=== PATIENT | male | born 1960 | race Caucasian/White ===

== ENCOUNTER 2017-01-24 10:29 | Emergency (ER) | payer OTHER ==
[~2017-01-24] VITALS: Ht 182.9 cm; Wt 70.0 kg
[~2017-01-24 10:29] MED LIST: ALPR0.5T3 PO; ZOFR4TAB3 SL
[2017-01-24 10:32] VITALS: BP 129/79; PULSE 91; RESP 15; TEMP 98.2; O2SAT 98
--- NOTE | 2017-01-24 11:59 | PD ---
HPI Chief Complaint: Fall Time Seen by Provider: 11:59 Travel History International Travel<30 days: No Contact w/Intl Traveler<30days: No Traveled to known affect area: No History of Present Illness HPI 56-year-old male presents emergency Department with complaint of right shoulder pain after tripping and falling over a step 6 days ago. He denies hitting his head or loss of consciousness. Denies neck pain or back pain. He has continued to work with increasing right shoulder pain. Reports decreased range of motion secondary to pain. Denies paresthesias, loss of sensation, decreased strength to the affected extremity. Denies fever, vomiting. Denies chest pain , shortness of breath, abdominal pain, nausea, vomiting. Denies anticoagulants. Has taken ibuprofen with some relief of pain. Pain is aggravated with movement and palpation. No known allergies. Has no other medical complaints. No other modifying factors or associated signs and symptoms. PFSH Past Medical History Anxiety: Yes Diminished Hearing: No Immunizations Current: Yes Migraines: Yes Influenza Vaccination: No Past Surgical History Other Surgery: Yes (R KNEE aspiration when he was 11) Social History Alcohol Use: Yes (daily) Tobacco Use: Yes (1/2 PPD) Substance Use: Yes (alcohol) Allergies-Medications (Allergen,Severity, Reaction): Coded Allergies: No Known Allergies (Verified , 01/24/17) Reported Meds & Prescriptions Reported Meds & Active Scripts Active Lortab (Hydrocodone-Acetaminophen) 5-325 Mg Tab 1 Tab PO Q4H PRN Ibuprofen 800 Mg Tab 800 Mg PO Q6HR PRN Reported Alprazolam 0.5 Mg Tab 0.5 Mg PO TID PRN Review of Systems Except as stated in HPI: all other systems reviewed are Neg Physical Exam Narrative GENERAL: Well-nourished, well-developed male patient, in no acute distress SKIN: Warm and dry. HEAD: Atraumatic. Normocephalic. EYES: Pupils equal and round. No scleral icterus. No injection or drainage. ENT: Mucosa pink and moist. Airway patent. NECK: Supple. Trachea midline. CARDIOVASCULAR: Regular rate and rhythm. No murmur appreciated. RESPIRATORY: No accessory muscle use. Clear to auscultation. Breath sounds equal bilaterally. GASTROINTESTINAL: Rounded. MUSCULOSKELETAL: Right shoulder with tenderness to palpation to the anterior aspect; without erythema, edema, ecchymosis; no obvious deformity; shoulders are equal; joint stable; with abduction greater than 45. Right upper extremity supple and non-tense with 2+ radial pulse and sensory intact and without erythema or edema. No obvious deformities. No clubbing. No cyanosis. No edema. NEUROLOGICAL: Awake and alert. Oriented 3. No obvious cranial nerve deficits. Motor grossly within normal limits. Normal speech. PSYCHIATRIC: Appropriate mood and affect; insight and judgment normal. Data Data Last Documented VS Vital Signs Date Time Temp Pulse Resp B/P Pulse Ox O2 Delivery O2 Flow Rate FiO2 01/24/17 10:32 98.2 91 15 129/79 98 Orders Shoulder, Complete (>2vws) (01/24/17 11:59) Ibuprofen (Motrin) (01/24/17 12:00) Sling Cradle Arm (01/24/17 ) MDM Medical Decision Making Medical Screen Exam Complete: Yes Emergency Medical Condition: Yes Medical Record Reviewed: Yes Differential Diagnosis Shoulder contusion, shoulder sprain, shoulder fracture Narrative Course 56-year-old male with right shoulder injury after mechanical fall 6 days ago. Ice pack and ibuprofen ordered. Right shoulder x-ray ordered. 1247: Shoulder x-ray concludes Nondisplaced fracture of the distal right clavicle. Arm sling provided for support. Lortab and ibuprofen prescribed for home. Instructed Patient to follow up with orthopedics. Patient verbalizes understanding and agreement with treatment plan. Patient is medically cleared and stable for discharge. Discussed reasons to return to the emergency department. Instructed patient to follow up with primary care provider. Patient agrees with treatment plan. The patients vital signs are stable and the patient is stable for outpatient follow-up and treatment. Patient discharged home, stable and in no acute distress. Diagnosis Primary Impression: Right clavicle fracture Qualified Code: S42.001A - Closed nondisplaced fracture of right clavicle, unspecified part of clavicle, initial encounter Referrals: Orthopedist Primary Care Physician Patient Instructions: Clavicle Fracture (ED), General Instructions Departure Forms: Tests/Procedures, Work Release Special Instructions: Unable to return to work until cleared by primary care and/or orthopedic Additional Instructions: Tylenol or ibuprofen as needed and as directed to reduce pain and inflammation Rest, ice, and compress extremety to decrease pain and inflammation Arm sling for support Avoid aggravating activity; increase activity as tolerated Follow-up with primary care provider Follow-up with orthopedics Return to the emergency department immediately with worsening symptoms Med/Other Pt SpecificInfo: Prescription(s) given Scripts Hydrocodone-Acetaminophen (Lortab)5-325 Mg Tab1 Tab PO Q4H PRN (PAIN) #20 TAB Ref 0 Prov:Hilary Vinson MD 01/24/17 Ibuprofen 800 Mg Yam343 Mg PO Q6HR PRN (PAIN LESS THAN 5 ON SCALE) #30 TAB Ref 0 Prov:Lia Berrios 01/24/17 Disposition: 01 DISCHARGE HOME Condition: Stable Lia Berrios Jan 24, 2017 11:59
[2017-01-24] MEDS ORDERED: IBUPROFEN 800 MG TAB PO ONE (12:00)
--- NOTE | 2017-01-24 12:40 | RADRPT ---
EXAM DATE/TIME: 01/24/2017 12:29 [facility] COMPARISON: CHEST SINGLE AP, August 17, 2016, 8:40. INDICATIONS : Right shoulder pain, fall down stairs. MEDICAL HISTORY : None. SURGICAL HISTORY : None. ENCOUNTER: Initial ACUITY: 4 - 6 days PAIN SCORE: 10/10 LOCATION: Right shoulder FINDINGS: The humeral head is well situated within the glenoid fossa. The bony mineralization is normal. The exam does demonstrate a minimally displaced fracture of the distal clavicle. This is immediately adjacent to the acromioclavicular joint. The right lung apex is clear. CONCLUSION: Nondisplaced fracture of the distal right clavicle. All Kinney MD on January 24, 2017 at 12:38 Board Certified Radiologist. This report was verified electronically.
[2017-01-24] MEDS ORDERED: IBUP800T23 PO (12:48)
[2017-01-24] MEDS ORDERED: HYDR-3533 PO (12:50)
== END 2017-01-24 13:08 | disposition home or self-care (01) ==
LOC: NEPK 10:29
DX: S42.034A Nondisplaced fracture of lateral end of right clavicle, initial encounter for closed fracture (principal); W01.0XXA Fall on same level from slipping, tripping and stumbling without subsequent striking against object, initial encounter
CPT/HCPCS: 73030; 99283

== ENCOUNTER 2017-09-04 07:45 | Emergency (ER) | payer OTHER ==
[~2017-09-04] VITALS: Ht 182.9 cm; Wt 68.0 kg
[~2017-09-04 07:45] MED LIST changes: +HYDR-3533 PO; +IBUP1TAB7 PO; -ZOFR4TAB3 SL
[2017-09-04 07:50] VITALS: BP 140/89; PULSE 107; RESP 22; TEMP 97.7; O2SAT 97
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
[2017-09-04] MEDS ORDERED: IBUPROFEN 600 MG TAB PO ONE (11:30)
== END 2017-09-04 11:48 | disposition home or self-care (01) ==
LOC: NEPD 07:45
DX: M25.511 Pain in right shoulder (principal); S80.212A Abrasion, left knee, initial encounter; F41.9 Anxiety disorder, unspecified; F17.200 Nicotine dependence, unspecified, uncomplicated; V28.4XXA Motorcycle driver injured in noncollision transport accident in traffic accident, initial encounter
CPT/HCPCS: 73030; 99283

== ENCOUNTER 2018-02-09 18:49 | Inpatient (IN) | payer OTHER ==
[2018-02-09] VITALS (9 sets, daily range): BP systolic 98–173; BP diastolic 54–84; PULSE 98–180; RESP 16–50; TEMP 98.8–99; O2SAT 96–100
[~2018-02-09] VITALS: Ht 182.9 cm; Wt 62.2 kg
[~2018-02-09 18:49] MED LIST changes: -HYDR-3533 PO; -IBUP1TAB7 PO
[2018-02-09] MEDS ORDERED: SODIUM CHLOR 0.9% 1000 ML INJ 1,000 ML IV SCH (19:02)
--- NOTE | 2018-02-09 19:13 | PD ---
HPI Chief Complaint: Altered Mental Status Time Seen by Provider: 19:01 Travel History International Travel<30 days: No Contact w/Intl Traveler<30days: No History of Present Illness HPI 57-year-old male presents emergency department via EMS with reports of confusion , and wandering for the last 4 days. Patient is jittery, and confused. Patient denies any significant pain, fever, chills, abdominal pain, nausea, vomiting, or urinary changes. He states he last drank 2 days ago. He is aware of where he is and who he lives with. He does answer questions appropriately, but does seem somewhat confused. He denies seizures from alcohol withdrawal in the past. 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 He has no known drug allergies. [facility] Past Medical History Anxiety: Yes Diminished Hearing: No Immunizations Current: Yes Migraines: Yes Past Surgical History Other Surgery: Yes (R KNEE aspiration when he was 11) Social History Alcohol Use: Yes (1 drink per day) Tobacco Use: Yes (1/2 PPD) Substance Use: No Allergies-Medications (Allergen,Severity, Reaction): Coded Allergies: No Known Allergies (Verified Allergy, Unknown, 02/09/18) Reported Meds & Prescriptions Reported Meds & Active Scripts Active Reported Alprazolam 0.5 Mg Tab 0.5 Mg PO TID PRN Review of Systems ROS Limitations: Poor Historian Except as stated in HPI: all other systems reviewed are Neg General / Constitutional: Positive: Chills, No: Fever Eyes: No: Visual changes HENT: No: Headaches Cardiovascular: No: Chest Pain or Discomfort Respiratory: No: Shortness of Breath Gastrointestinal: No: Abdominal Pain Genitourinary: No: Dysuria Musculoskeletal: No: Pain Skin: No Rash Neurologic: No: Weakness Psychiatric: No: Depression Endocrine: No: Polydipsia Hematologic/Lymphatic: No: Easy Bruising Physical Exam Exam Limitations: Poor Historian Narrative GENERAL: Patient is thin and gaunt and jittery. SKIN: Warm and dry. Normal color. Decreased turgor with tenting present. No signs of IV drug use or cellulitis HEAD: Atraumatic. Normocephalic. EYES: Pupils equal and round. No scleral icterus. No injection or drainage. ENT: No nasal bleeding or discharge. Mucous membranes pink and dry. Teeth in poor repair. Pharynx clear. Airways patent NECK: Trachea midline. No JVD. Supple and nontender CARDIOVASCULAR: Regular rate and rhythm. RESPIRATORY: No accessory muscle use. Clear to auscultation. Breath sounds equal bilaterally. GASTROINTESTINAL: Abdomen soft, non-tender, nondistended. Hepatic and splenic margins not palpable. MUSCULOSKELETAL: Extremities without clubbing, cyanosis, or edema. No obvious deformities. NEUROLOGICAL: Awake and alert. No obvious cranial nerve deficits. Motor grossly within normal limits. Five out of 5 muscle strength in the arms and legs. Normal speech. Data Data Last Documented VS Vital Signs Date Time Temp Pulse Resp B/P (MAP) Pulse Ox O2 Delivery O2 Flow Rate FiO2 02/09/18 19:06 99.0 99 18 137/82 (100) 98 Orders Orders Electrocardiogram (02/09/18:) Ammonia (02/09/18:02) Complete Blood Count With Diff (02/09/18:02) Comprehensive Metabolic Panel (02/09/18:) Prothrombin Time / Inr (Pt) (02/09/18:) Act Partial Throm Time (Ptt) (02/09/18:) Troponin I (02/09/18:02) Thyroid Stimulating Hormone (02/09/18 19:02) Urinalysis - C+S If Indicated (02/09/18 19:) Lactic Acid Sepsis Protocol (02/09/18 19:02) Chest, Single Ap (02/09/18:02) Ecg Monitoring (02/09/18 19:02) Iv Access Insert/Monitor (02/09/18:) Oximetry (02/09/18:) Sodium Chloride 0.9% Flush (Ns Flush) (02/09/18 19:15) Sodium Chlor 0.9% 1000 Ml Inj (Ns 1000 M (02/09/18 19:02) Thiamine Inj (Thiamine Inj) (02/09/18 19:15) Drug Screen, Random Urine (02/09/18 19:02) Alcohol (Ethanol) (02/09/18 19:02) Chlordiazepoxide (Librium) (02/09/18 19:15) Lorazepam Inj (Ativan Inj) (02/09/18 19:15) Admit Order (Ed Use Only) (02/09/18 21:04) Labs Laboratory Tests Test 02/09/18 19:25 02/09/18 20:40 White Blood Count 4.5 TH/MM3 Red Blood Count 3.53 MIL/MM3 Hemoglobin 12.7 GM/DL Hematocrit 37.6 % Mean Corpuscular Volume 106.3 FL Mean Corpuscular Hemoglobin 36.0 PG Mean Corpuscular Hemoglobin Concent 33.9 % Red Cell Distribution Width 13.8 % Platelet Count 153 TH/MM3 Mean Platelet Volume 7.8 FL Neutrophils (%) (Auto) 78.6 % Lymphocytes (%) (Auto) 8.3 % Monocytes (%) (Auto) 13.0 % Eosinophils (%) (Auto) 0.0 % Basophils (%) (Auto) 0.1 % Neutrophils # (Auto) 3.6 TH/MM3 Lymphocytes # (Auto) 0.4 TH/MM3 Monocytes # (Auto) 0.6 TH/MM3 Eosinophils # (Auto) 0.0 TH/MM3 Basophils # (Auto) 0.0 TH/MM3 CBC Comment DIFF FINAL Differential Comment Prothrombin Time 10.7 SEC Prothromb Time International Ratio 1.1 RATIO Activated Partial Thromboplast Time 23.1 SEC Blood Urea Nitrogen 23 MG/DL Creatinine 1.35 MG/DL Random Glucose 92 MG/DL Total Protein 7.5 GM/DL Albumin 4.3 GM/DL Calcium Level 9.1 MG/DL Alkaline Phosphatase 83 U/L Aspartate Amino Transf (AST/SGOT) 41 U/L Alanine Aminotransferase (ALT/SGPT) 36 U/L Total Bilirubin 1.4 MG/DL Sodium Level 133 MEQ/L Potassium Level 3.9 MEQ/L Chloride Level 97 MEQ/L Carbon Dioxide Level 24.2 MEQ/L Anion Gap 12 MEQ/L Estimat Glomerular Filtration Rate 54 ML/MIN Lactic Acid Level 2.0 mmol/L Ammonia 18 MCMOL/L Troponin I LESS THAN 0.02 NG/ML Thyroid Stimulating Hormone 3rd Gen 1.220 uIU/ML Ethyl Alcohol Level LESS THAN 3 MG/DL Urine Color Cammy Urine Turbidity HAZY Urine pH 5.0 Urine Specific [place] 1.027 Urine Protein 100 mg/dL Urine Glucose (UA) 50 mg/dL Urine Ketones 20 mg/dL Urine Occult Blood NEG Urine Nitrite NEG Urine Bilirubin NEG Urine Urobilinogen 4.0 OR GREATER mg/dL Urine Leukocyte Esterase NEG Urine RBC LESS THAN 1 /hpf Urine WBC 4 /hpf Urine Squamous Epithelial Cells <1 /hpf Urine Hyaline Casts 22 /lpf Urine Mucus FEW /lpf Microscopic Urinalysis Comment CATH-CULT NOT IND Urine Opiates Screen NEG Urine Barbiturates Screen NEG Urine Amphetamines Screen NEG Urine Benzodiazepines Screen POS Urine Cocaine Screen NEG Urine Cannabinoids Screen NEG MDM Medical Decision Making Medical Screen Exam Complete: Yes Emergency Medical Condition: Yes Medical Record Reviewed: Yes Differential Diagnosis Altered mental status. Alcohol withdrawal syndrome. Electrolyte imbalance. Dehydration. Narrative Course Patient appears medically stable at time of exam. Labs ordered including CBC CMP, coagulation studies, lactic acid, TSH, troponin , serum alcohol level, ammonia level, and urinalysis. Chest x-ray is ordered as well as EKG. IV access is obtained the patient is given 100 mg thiamine, 1000 mL saline bolus IV, 1 mg lorazepam IV, and 25 mg Librium p.o. Chest x-ray shows COPD without acute process per radiologist. There is a chronic right distal clavicular fracture. EKG shows sinus tachycardia without significant ST changes CBC shows no significant leukocytosis, however there is a macrocytic anemia with a hemoglobin of 12.7, hematocrit of 37.6. CMP significant for sodium 133, potassium 3.9, chloride is 97, carbon dioxide is normal at 24.2. BUN is 23, creatinine is slightly elevated 1.35. Calcium is normal. Total bilirubin is 1.4, AST is 41, ammonia level is 18. Troponin is less than 0.02. TSH is normal. Lactic acid is 2.0 Urinalysis shows no sign of infection. He does have 100 protein, and increased urobilinogen. Specific gravity is 1.025. Patient is felt to be suffering from alcohol withdrawal syndrome. Patient will be admitted to observation for this diagnosis. 2200 hrs., patient had been admitted to Dr. Salmeron, however the patient's symptoms worsened with both visual and auditory hallucinations, increased tachycardia, and need for soft restraints. Patient received a total of 25 mg Librium p.o. as well as 5 mg lorazepam IV without improvement of his symptoms. Dr. Salmeron did not feel the patient was appropriate for the floor, and requested that he be admitted to ICU under the fishing accessories maker. Calls placed to Dr. Bonds to discuss the patient. Patient is given 10 mg Geodon IM as well as 50 mg Benadryl IV. 2220 hrs[address] Dr. Bonds is here to see the patient and assumes care. Diagnosis Primary Impression: Alcohol withdrawal syndrome, with delirium Admitting Information Admitting Physician Requests: Observation Condition: Stable Venkat More Feb 09, 2018 19:13
[2018-02-09] MEDS ORDERED: SODIUM CHLORIDE 0.9% FLUSH 10 ML FLUSH IV FLUSH PRN ×2 (19:15→22:45)
[2018-02-09] MEDS ORDERED: LORazepam 2 MG/ML VIAL IV PUSH ONE ×3 (19:15→21:45)
[2018-02-09] MEDS ORDERED: THIAMINE INJ 100 MG in SODIUM CHLORIDE 0.9% INJ 100 ML IV ONE (19:15)
[2018-02-09] MEDS ORDERED: chlordiazePOXIDE 25 MG CAP PO ONE (19:15)
--- NOTE | 2018-02-09 19:30 | RADRPT ---
EXAM DATE: 02/09/2018 7:24 PM EDT AGE/SEX: 57 years / Male INDICATIONS: Cough CLINICAL DATA: This is the patient's initial encounter. Patient reports that signs and symptoms have been present for 1 day and indicates a pain score of 0/10. MEDICAL/SURGICAL HISTORY: Chronic obstructive pulmonary disease. None. COMPARISON: Chest x-ray 08/17/2016. FINDINGS: 2 frontal views of the chest demonstrate the lungs to be symmetrically aerated without evidence of ma ss, infiltrate or effusion. The lungs are hyperinflated bilaterally. The cardiomediastinal contours are unremarkable. There is an old right distal clavicular fracture with lack of union. This is new fr om the prior study. CONCLUSION: The lungs are hyperinflated consistent with COPD. No acute infiltrate or effusion. Chronic right dist al clavicular fracture. Electronically signed by: Yovany Upton MD 02/09/2018 7:28 PM EDT
[2018-02-09 19:45] LABS: AUTOMATED NEUTROPHIL # 3.6 TH/MM3 (1.8-7.7); BASOPHIL % 0.1 % (0.0-2.0); HEMATOCRIT 37.6 % (39.0-51.0); HEMOGLOBIN 12.7 GM/DL (13.0-17.0); LYMPH % 8.3 % (9.0-44.0); LYMPHOCYTE # 0.4 TH/MM3 (1.0-4.8); MEAN CELL VOLUME 106.3 FL (80.0-100.0); MEAN CORPUSCULAR HGB CONC 33.9 % (32.0-36.0); MEAN PLATELET VOLUME 7.8 FL (7.0-11.0); MONOCYTE # 0.6 TH/MM3 (0-0.9); NEUT % 78.6 % (16.0-70.0); PLATELET COUNT 153 TH/MM3 (150-450); RED BLOOD COUNT 3.53 MIL/MM3 (4.50-5.90); RED CELL DISTRIBUTION WIDTH 13.8 % (11.6-17.2); WHITE BLOOD COUNT 4.5 TH/MM3 (4.0-11.0)
[2018-02-09 20:02] LABS: ALBUMIN 4.3 GM/DL (3.4-5.0); AST (GOT) 41 U/L (15-37); BICARBONATE 24.2 MEQ/L (21.0-32.0); BLOOD UREA NITROGEN 23 MG/DL (7-18); CALCIUM 9.1 MG/DL (8.5-10.1); CHLORIDE 97 MEQ/L (98-107); CREATININE 1.35 MG/DL (0.60-1.30); GLOMERULAR FILTRATION RATE 54 ML/MIN (>89); GLUCOSE,RANDOM 92 MG/DL (74-106); SODIUM (NA) 133 MEQ/L (136-145)
[2018-02-09 20:03] LABS: ALT (GPT) 36 U/L (12-78)
[2018-02-09 20:06] LABS: INTERNATIONAL NORMALIZED RATIO 1.1 RATIO; PROTHROMBIN TIME - PATIENT 10.7 SEC (9.8-11.6)
[2018-02-09 20:13] LABS: ALKALINE PHOSPHATASE 83 U/L (45-117); TOTAL BILIRUBIN ADULT 1.4 MG/DL (0.2-1.0); TOTAL PROTEIN 7.5 GM/DL (6.4-8.2); TROPONIN I LESS THAN 0.02 NG/ML (0.02-0.05)
[2018-02-09 21:12] LABS: BLOOD, URINE NEG (NEG); GLUCOSE,URINE 50 mg/dL (NEG); HYALINE CAST, URINE 22 /lpf (RARE); KETONE, URINE 20 mg/dL (NEG); MUCUS URINE FEW /lpf (OCC); NITRITE,URINE NEG (NEG); SQUAMOUS EPITHELIAL CELL URINE <1 /hpf (0-5); URINE COLOR Amber (YELLW/STRAW); URINE LEUKOCYTE ESTERASE NEG (NEG)
[2018-02-09 21:15] LABS: BILIRUBIN, URINE NEG (NEG)
[2018-02-09] MEDS ORDERED: MIDAZOLAM HCL 2 MG/2 ML VIAL IV PUSH ONE (22:00)
[2018-02-09] MEDS ORDERED: diphenhydrAMINE HCL 50 MG/ML VIAL IV PUSH ONE (22:00)
[2018-02-09] MEDS ORDERED: ZIPRASIDONE MESYLATE 20 MG VIAL IM ONE (22:00)
--- NOTE | 2018-02-09 22:06 | PD ---
Physical Exam Exam Limitations: Clinical Condition, Altered Mental Status Narrative GENERAL: Agitated SKIN: Warm and dry. HEAD: Atraumatic. Normocephalic. EYES: Pupils equal and round. No scleral icterus. No injection or drainage. ENT: No nasal bleeding or discharge. Mucous membranes pink and moist. NECK: Trachea midline. No JVD. CARDIOVASCULAR: Tachycardic rate but regular rhythm RESPIRATORY: No accessory muscle use. Clear to auscultation. Breath sounds equal bilaterally. GASTROINTESTINAL: Abdomen soft, non-tender, nondistended. Hepatic and splenic margins not palpable. MUSCULOSKELETAL: Extremities without clubbing, cyanosis, or edema. No obvious deformities. NEUROLOGICAL: Patient is more agitated, having more visual and auditory hallucinations present. Motor grossly within normal limits. Five out of 5 muscle strength in the arms and legs. Due to the excessive movement the patient is in soft restraints while receiving CIWA PROTOCOL PSYCHIATRIC: UNABLE TO ASSESS DUE TO AMS Data Data Last Documented VS Vital Signs Date Time Temp Pulse Resp B/P (MAP) Pulse Ox O2 Delivery O2 Flow Rate FiO2 02/09/18 19:06 99.0 99 18 137/82 (100) 98 Orders Orders Electrocardiogram (02/09/18 19:02) Ammonia (02/09/18 19:02) Complete Blood Count With Diff (02/09/18:02) Comprehensive Metabolic Panel (02/09/18 19:02) Prothrombin Time / Inr (Pt) (02/09/18 19:02) Act Partial Throm Time (Ptt) (02/09/18 19:02) Troponin I (02/09/18:02) Thyroid Stimulating Hormone (02/09/18 19:02) Urinalysis - C+S If Indicated (02/09/18 19:02) Lactic Acid Sepsis Protocol (02/09/18 19:02) Chest, Single Ap (02/09/18 19:02) Ecg Monitoring (02/09/18 19:02) Iv Access Insert/Monitor (02/09/18 19:) Oximetry (02/09/18 19:02) Sodium Chloride 0.9% Flush (Ns Flush) (02/09/18 19:15) Sodium Chlor 0.9% 1000 Ml Inj (Ns 1000 M (02/09/18 19:02) Thiamine Inj (Thiamine Inj) (02/09/18 19:15) Drug Screen, Random Urine (02/09/18 19:02) Alcohol (Ethanol) (02/09/18 19:02) Chlordiazepoxide (Librium) (02/09/18 19:15) Lorazepam Inj (Ativan Inj) (02/09/18 19:15) Admit Order (Ed Use Only) (02/09/18 21:04) Labs Laboratory Tests Test 02/09/18 19:25 02/09/18 20:40 White Blood Count 4.5 TH/MM3 Red Blood Count 3.53 MIL/MM3 Hemoglobin 12.7 GM/DL Hematocrit 37.6 % Mean Corpuscular Volume 106.3 FL Mean Corpuscular Hemoglobin 36.0 PG Mean Corpuscular Hemoglobin Concent 33.9 % Red Cell Distribution Width 13.8 % Platelet Count 153 TH/MM3 Mean Platelet Volume 7.8 FL Neutrophils (%) (Auto) 78.6 % Lymphocytes (%) (Auto) 8.3 % Monocytes (%) (Auto) 13.0 % Eosinophils (%) (Auto) 0.0 % Basophils (%) (Auto) 0.1 % Neutrophils # (Auto) 3.6 TH/MM3 Lymphocytes # (Auto) 0.4 TH/MM3 Monocytes # (Auto) 0.6 TH/MM3 Eosinophils # (Auto) 0.0 TH/MM3 Basophils # (Auto) 0.0 TH/MM3 CBC Comment DIFF FINAL Differential Comment Prothrombin Time 10.7 SEC Prothromb Time International Ratio 1.1 RATIO Activated Partial Thromboplast Time 23.1 SEC Blood Urea Nitrogen 23 MG/DL Creatinine 1.35 MG/DL Random Glucose 92 MG/DL Total Protein 7.5 GM/DL Albumin 4.3 GM/DL Calcium Level 9.1 MG/DL Alkaline Phosphatase 83 U/L Aspartate Amino Transf (AST/SGOT) 41 U/L Alanine Aminotransferase (ALT/SGPT) 36 U/L Total Bilirubin 1.4 MG/DL Sodium Level 133 MEQ/L Potassium Level 3.9 MEQ/L Chloride Level 97 MEQ/L Carbon Dioxide Level 24.2 MEQ/L Anion Gap 12 MEQ/L Estimat Glomerular Filtration Rate 54 ML/MIN Lactic Acid Level 2.0 mmol/L Ammonia 18 MCMOL/L Troponin I LESS THAN 0.02 NG/ML Thyroid Stimulating Hormone 3rd Gen 1.220 uIU/ML Ethyl Alcohol Level LESS THAN 3 MG/DL Urine Color Cammy Urine Turbidity HAZY Urine pH 5.0 Urine Specific [place] 1.027 Urine Protein 100 mg/dL Urine Glucose (UA) 50 mg/dL Urine Ketones 20 mg/dL Urine Occult Blood NEG Urine Nitrite NEG Urine Bilirubin NEG Urine Urobilinogen 4.0 OR GREATER mg/dL Urine Leukocyte Esterase NEG Urine RBC LESS THAN 1 /hpf Urine WBC 4 /hpf Urine Squamous Epithelial Cells <1 /hpf Urine Hyaline Casts 22 /lpf Urine Mucus FEW /lpf Microscopic Urinalysis Comment CATH-CULT NOT IND Urine Opiates Screen NEG Urine Barbiturates Screen NEG Urine Amphetamines Screen NEG Urine Benzodiazepines Screen POS Urine Cocaine Screen NEG Urine Cannabinoids Screen NEG MDM Medical Record Reviewed: Yes Supervised Visit with RAJAN: Yes Narrative Course I, Dr. ESCAMILLA, have reviewed the advance practice practitioner's documentation and am in agreement, met with the patient face to face, made the diagnosis, and the medical decision making was done by me. The patient was initially evaluated by [GIO]. Please see their complete history and physical. *My assessment and Findings: The patient presents with AMS AND WITHDRAWAL LIKE SYMPTOMS WITH AUDITORY/VISUAL HALLUCINATIONS AND AGITATIONS During the course of the patient's emergency department visit, the patient's history, examination, and differential diagnosis were reviewed with the patient. The patient was placed on a manager cardiac with oximetry and frequent blood pressure monitoring. The patient had IV access obtained and blood work sent for analysis. The patient was initially provided [Librium, multiple doses of Ativan, Geodon, Versed,]. The patient's laboratory studies were reviewed and remarkable for [no evidence of any leukocytosis or left shift, no evidence of anemia, however meGALOblastic findings with MCV of 106..... Coagulation profile is within normal limits UA is negative for any UTI... Tox screen is negative alcohol but positive for benzodiazepines... Electrolytes are all within normal limits with the exception of slightly elevated creatinine 1.35, slightly decreased GFR of 54. First set of cardiac enzymes negative, ammonia level within normal limits at 18 , TSH screening test within normal limits. Lactic acid was not elevated 2.0]. Radiology studies were reviewed and remarkable for [chest x-ray consistent with chronic clavicular fracture, and hyperinflated findings consistent with COPD] Critical Care Narrative CRITICAL CARE NOTE: With evaluation of the patient, labs, EKG, receipt of radiologic studies, administration of medications, reevaluation the patient and discussion of the patient with the admitting physicians, the total critical care time was [45] minutes. Time to perform other separately billable procedures was not included in the critical care time. Physician Communication Physician Communication Case was initially discussed with [facility] hospitalist, however kindly requested patient be upgraded to split leather mosser due to the advanced level of alcohol withdrawal Diagnosis Primary Impression: Alcohol withdrawal syndrome, with delirium Admitting Information Admitting Physician Requests: Admit Condition: Stable Russ Escamilla MD Feb 09, 2018 22:06
[2018-02-09] MEDS ORDERED: ETOMIDATE 40 MG/20 ML VIAL ONE (22:26)
[2018-02-09] MEDS ORDERED: ROCURONIUM INJ 50 MG/5 ML VIAL ONE (22:27)
[2018-02-09] MEDS ORDERED: ETOMIDATE 40 MG/20 ML VIAL IV PUSH ONE (22:30)
[2018-02-09] MEDS ORDERED: ROCURONIUM INJ 100 MG/10 ML VIAL IV ONE (22:30)
[2018-02-09] MEDS ORDERED: DEXMEDETOMIDINE INJ 200 MCG in SODIUM CHLORIDE 0.9% INJ 50 ML IV PRN (22:30)
[2018-02-09] MEDS ORDERED: PROPOFOL 500 MG/50 ML INJ 50 ML ONE (22:38)
[2018-02-09] MEDS: SODIUM CHLOR 0.9% 1000 ML INJ 1,000 ML IV SCH (22:39)
[2018-02-09] MEDS ORDERED: POTASSIUM PHOSPHATE MONOBASIC 500 MG TAB PO PRN (22:45)
[2018-02-09] MEDS ORDERED: POTASSIUM PHOSPHATE MONOBASIC 500 MG TAB PO/TUBE PRN (22:45)
[2018-02-09] MEDS ORDERED: GLUCAGON 1 MG/ML VIAL OTHER PRN (22:45)
[2018-02-09] MEDS ORDERED: MULTIVITAMIN INJ 10 ML, THIAMINE INJ 100 MG, FOLIC ACID INJ 1 MG in SODIUM CHLORID 0.9%... IV ONE (22:45)
[2018-02-09] MEDS ORDERED: CHLORHEXIDINE GLUCONATE 2 % 1 PACK (2 CLOTHS) TOP PRN (22:45)
[2018-02-09] MEDS ORDERED: MAGNESIUM OXIDE 400 MG TAB PO PRN (22:45)
[2018-02-09] MEDS ORDERED: MAGNESIUM SULFATE INJ 4 GM in SODIUM CHLORIDE 0.9% INJ 92 ML IV PRN (22:45)
[2018-02-09] MEDS ORDERED: BISACODYL 10 MG SUPP RECTAL PRN (22:45)
[2018-02-09] MEDS ORDERED: NURSING INFORMATION XX SCH (22:45)
[2018-02-09] MEDS ORDERED: MAGNESIUM HYDROXIDE SUSP 30 ML CUP PO PRN (22:45)
[2018-02-09] MEDS ORDERED: SENNOSIDES 8.6 MG TAB PO PRN (22:45)
[2018-02-09] MEDS ORDERED: POTASSIUM CHLORIDE 25 MEQ EFFERVESCENT TAB PO PRN (22:45)
[2018-02-09] MEDS ORDERED: LACTULOSE SYRUP 20 GM/30 ML CUP PO PRN (22:45)
[2018-02-09] MEDS ORDERED: POTASSIUM CHLOR 40 MEQ PREMIX 100 ML IV PRN ×2 (22:45)
[2018-02-09] MEDS ORDERED: RESP: ALBUTEROL 2.5 MG/3 ML NEB (PRN) INH (22:45)
[2018-02-09] MEDS ORDERED: SODIUM PHOSPHATE INJ 30 MMOL in SODIUM CHLOR 0.9% 250 ML INJ 240 ML IV PRN (22:45)
[2018-02-09] MEDS ORDERED: ONDANSETRON ODT 4 MG TAB PO PRN (22:45)
[2018-02-09] MEDS ORDERED: POTASSIUM PHOSPHATE INJ 30 MMOL in SODIUM CHLOR 0.9% 250 ML INJ 250 ML IV PRN (22:45)
[2018-02-09] MEDS ORDERED: MAGNESIUM SULFATE INJ 2 GM in SODIUM CHLORIDE 0.9% INJ 96 ML IV PRN (22:45)
[2018-02-09] MEDS ORDERED: POTASSIUM CHLOR 20 MEQ PREMIX 100 ML IV PRN ×2 (22:45)
--- NOTE | 2018-02-09 22:49 | HHI.HP ---
[facility] Service Critical Care Medicine Primary Care Physician Unknown Admission Diagnosis ETOH Withdrawl Synderome Diagnosis: (1) Acute respiratory failure Diagnosis: Principal (2) Macrocytic anemia Diagnosis: Principal (3) Hyponatremia Diagnosis: Principal (4) Elevated AST (SGOT) Diagnosis: Principal (5) Acute kidney injury Diagnosis: Principal (6) Chronic prescription benzodiazepine use Diagnosis: Secondary (7) Smoking Diagnosis: Secondary (8) Anxiety disorder Diagnosis: Secondary Chief Complaint: Patient found wandering confused and altered. History of alcohol abuse Travel History International Travel<30 Days: No Contact w/Intl Traveler <30 Da: No Traveled to Known Affected Are: No History of Present Illness This is a 57-year-old male. Date of admission 02/09/2018. Past medical history includes alcohol use and anxiety with chronic alprazolam use. Patient last consumed alcohol 2 days ago according to family per records. Patient presented to have assessed at being found wandering confused. Patient was awake and oriented to person according to previous records. Baseline laboratories revealed a sodium 133, macrocytic anemia, elevated AST and creatinine 1.35. TSH within normal limits. Patient became more delirious and received 20 mg chlordiazepoxide and 5 mg lorazepam. Despite this, patient became more tachycardic when I evaluated patient patient was in the 190s patient was quite diaphoretic the respiratory rate in the 50s. Please note initial troponin was 0.02. Alcohol level less than 3. Urine drug screen positive for benzodiazepines only Patient was not intubated myself using 20 mg etomidate and [address] pending Review of Systems ROS Limitations: Intubated Past Family Social History Allergies: Coded Allergies: No Known Allergies (Verified Allergy, Unknown, 02/09/18) Past Medical History Anxiety disorder EtOH Tobaccoism Chronic benzodiazepine use Past Surgical History Right knee drained at age 11 Reported Medications Alprazolam 0.5 mg 3 times daily as needed Active Ordered Medications Reviewed in EMR Family History Not documented. Family currently not available to define. Social History 1 drink daily?. One half pack per day tobacco. No illicit drug use Physical Exam Vital Signs Vital Signs Date Time Temp Pulse Resp B/P (MAP) Pulse Ox O2 Delivery O2 Flow Rate FiO2 02/09/18 21:28 98.8 98 16 111/60 (77) 98 Room Air 02/09/18 19:06 99.0 99 18 137/82 (100) 98 Physical Exam GENERAL: 57-year-old male currently orotracheally intubated SKIN: Warm and moist. No rash. HEAD: Atraumatic. Normocephalic. EYES: Pupils equal and round about 3 mm bilaterally and reactive. No scleral icterus. No injection or drainage. ENT: No nasal bleeding or discharge. Mucous membranes pink and moist. NECK: Trachea midline. No JVD. CARDIOVASCULAR: Tachycardic, RR. S1, S2 no S4. Without murmur RESPIRATORY: No accessory muscle use. Clear to auscultation. Breath sounds equal bilaterally. GASTROINTESTINAL: Abdomen soft, non-tender, nondistended. Hepatic and splenic margins not palpable. MUSCULOSKELETAL: Extremities without clubbing, cyanosis, or edema. No obvious deformities. NEUROLOGICAL: Prior to intubation quite delirious with mumbling words. Moving all 4 extremities strongly but not to command. Laboratory Laboratory Tests Test 02/09/18 19:25 02/09/18 20:40 White Blood Count 4.5 Red Blood Count 3.53 Hemoglobin 12.7 Hematocrit 37.6 Mean Corpuscular Volume 106.3 Mean Corpuscular Hemoglobin 36.0 Mean Corpuscular Hemoglobin Concent 33.9 Red Cell Distribution Width 13.8 Platelet Count 153 Mean Platelet Volume 7.8 Neutrophils (%) (Auto) 78.6 Lymphocytes (%) (Auto) 8.3 Monocytes (%) (Auto) 13.0 Eosinophils (%) (Auto) 0.0 Basophils (%) (Auto) 0.1 Neutrophils # (Auto) 3.6 Lymphocytes # (Auto) 0.4 Monocytes # (Auto) 0.6 Eosinophils # (Auto) 0.0 Basophils # (Auto) 0.0 CBC Comment DIFF FINAL Differential Comment Prothrombin Time 10.7 Prothromb Time International Ratio 1.1 Activated Partial Thromboplast Time 23.1 Blood Urea Nitrogen 23 Creatinine 1.35 Random Glucose 92 Total Protein 7.5 Albumin 4.3 Calcium Level 9.1 Alkaline Phosphatase 83 Aspartate Amino Transf (AST/SGOT) 41 Alanine Aminotransferase (ALT/SGPT) 36 Total Bilirubin 1.4 Sodium Level 133 Potassium Level 3.9 Chloride Level 97 Carbon Dioxide Level 24.2 Anion Gap 12 Estimat Glomerular Filtration Rate 54 Lactic Acid Level 2.0 Ammonia 18 Troponin I LESS THAN 0.02 Thyroid Stimulating Hormone 3rd Gen 1.220 Ethyl Alcohol Level LESS THAN 3 Urine Color Cammy Urine Turbidity HAZY Urine pH 5.0 Urine Specific [place] 1.027 Urine Protein 100 Urine Glucose (UA) 50 Urine Ketones 20 Urine Occult Blood NEG Urine Nitrite NEG Urine Bilirubin NEG Urine Urobilinogen 4.0 OR GREATER Urine Leukocyte Esterase NEG Urine RBC LESS THAN 1 Urine WBC 4 Urine Squamous Epithelial Cells <1 Urine Hyaline Casts 22 Urine Mucus FEW Microscopic Urinalysis Comment CATH-CULT NOT IND Urine Opiates Screen NEG Urine Barbiturates Screen NEG Urine Amphetamines Screen NEG Urine Benzodiazepines Screen POS Urine Cocaine Screen NEG Urine Cannabinoids Screen NEG Result Diagram: 02/09/18192402/09/181924 Imaging Last Impressions Chest X-Ray 02/09/181901 Signed Impressions: CONCLUSION: The lungs are hyperinflated consistent with COPD. No acute infiltrate or effusi on. Chronic right distal clavicular fracture. Septic Shock Reassessment Septic shock perfusion: reassessment completed Caprini VTE Risk Assessment Caprini VTE Risk Assessment: Mod/High Risk (score >= 2) Caprini Risk Assessment Model Point Value = 1 Point Value = 2 Point Value = 3 Point Value = 5 Age 41-60 Minor surgery BMI > 25 kg/m2 Swollen legs Varicose veins or History of unexplained or recurrent spontaneous Oral contraceptives or hormone replacement Sepsis (< 1 month) Serious lung disease, including pneumonia (< 1 month) Abnormal pulmonary function Acute myocardial infarction Congestive heart failure (< 1 month) History of inflammatory bowel disease Medical patient at bed rest Age 61-74 Arthroscopic surgery Major open surgery (> 45 min) Laparoscopic surgery (> 45 min) Malignancy Confined to bed (> 72 hours) Immobilizing plaster cast Central venous access Age >= 75 History of VTE Family history of VTE Factor V Leiden Prothrombin [id number] Lupus anticoagulant Anticardiolipin antibodies Elevated serum homocysteine Heparin-induced thrombocytopenia Other congenital or acquired thrombophilia Stroke (< 1 month) Elective arthroplasty Hip, pelvis, or leg fracture Acute spinal cord injury (< 1 month) Prophylaxis Regimen Total Risk Factor Score Risk Level Prophylaxis Regimen 0-1 Low Early ambulation 2 Moderate Order ONE of the following: *Sequential Compression Device (SCD) *Heparin 5000 units SQ BID 3-4 Higher Order ONE of the following medications: *Heparin 5000 units SQ TID *Enoxaparin/Lovenox 40 mg SQ daily (WT < 150 kg, CrCl > 30 mL/min) *Enoxaparin/Lovenox 30 mg SQ daily (WT < 150 kg, CrCl > 10-29 mL/min) *Enoxaparin/Lovenox 30 mg SQ BID (WT < 150 kg, CrCl > 30 mL/min) AND/OR *Sequential Compression Device (SCD) 5 or more Highest Order ONE of the following medications: *Heparin 5000 units SQ TID (Preferred with Epidurals) *Enoxaparin/Lovenox 40 mg SQ daily (WT < 150 kg, CrCl > 30 mL/min) *Enoxaparin/Lovenox 30 mg SQ daily (WT < 150 kg, CrCl > 10-29 mL/min) *Enoxaparin/Lovenox 30 mg SQ BID (WT < 150 kg, CrCl > 30 mL/min) AND *Sequential Compression Device (SCD) Assessment and Plan Assessment and Plan Neuro/Psych: Acute toxic metabolic encephalopathy EtOH withdrawal Currently on propofol and fentanyl drips for sedation/analgesia while intubated Goal of RASS -[address] brain currently pending Currently in vitamin bag including thiamine, multivitamin and folate daily CV: Sinus tachycardia Initial troponin 0.02. Will recheck in a.m. Currently on normal saline at 84 cc Resp: Acute respiratory failure PRVC 16//08/26/39 Ventilator bundle Albuterol/ipratropium aerosols every 4 hours with albuterol aerosols every 2 hours as needed dyspnea Spontaneous breathing trials when clinically indicated Follow-up post intubation ABG and chest x-ray GI: Elevated AST N.p.o. status NGT LIWS Lansoprazole for GI prophylaxis Docusate sodium/senna 1 tablet twice daily for bowel regimen Recheck CMP in a.m. : Dent catheter for accurate I's and O's in a critically ill patient Endo: TSH was 1.12 SSI to maintain euglycemia Renal: Acute kidney injury Monitor urine output Accurate I's and O's Recheck BMP in a.m. after hydration. Heme: Macrocytic anemia Monitor CBC daily. Follow trends No indication for transfusion of blood products at this time ID: Check blood cultures 2, sputum. UA negative FEN: Hyponatremia Replace electrolytes as clinically indicated per ICU electrolyte protocol MSK: Chronic R clavicle fx PT evaluate and treat Access -utilize peripheral IV. Central line if indicated Prophylaxis -GI -lansoprazole -DVT -SCD/heparin subcu with negative CT brain Critical Care: The total critical care time was 35 minutes. Time to perform other separately billable procedures was not included in the critical care time. Code Status Full code Discussed Condition With Patient. Care plan discussed and all questions answered. Problem Qualifiers (1) Acute respiratory failure: Qualified Codes: J96.00 - Acute respiratory failure, unspecified whether with hypoxia or hypercapnia (2) Anxiety disorder: Qualified Codes: F41.1 - Generalized anxiety disorder Dov Bonds MD Feb 09, 2018 22:49
--- NOTE | 2018-02-09 23:26 | PD.PROCEDR ---
Procedure Note Procedure DATE: 02/09/2018 PROCEDURE: Orotracheal intubation INDICATION: Acute respiratory failure DETAILS OF PROCEDURE The patient was placed in optimal position and preoxygenated with 100% FiO2 via bag valve mask. At the start oxygen saturation was 100%. The patient was administered 20 mg etomidate IV and 50 milligrams rocuronium IV. I entered the oropharynx with a size 4 laryngoscope blade and obtained a grade 2 view of the airway. On single attempt a size 8.0 cuffed endotracheal tube was passed through the vocal cords. Correct tube location was confirmed with end tidal CO2 detector and by auscultating over bilateral lung hyatt. The endotracheal tube was secured with adhesive tape at a depth of 24 cm at the lips. The patient was connected to the ventilator. The patient tolerated the procedure well without any apparent complications. Oxygen saturations were maintained greater than 95% all times. STAT chest x-ray pending at time of dictation. Dov Bonds MD Feb 09, 2018 23:26
[2018-02-09] MEDS: RESP: ALBUTEROL 2.5 MG/IPRATROPIUM 0.5 MG NEB (SCH) INH (23:36)
--- NOTE | 2018-02-09 23:51 | RADRPT ---
EXAM DATE: 02/09/2018 11:35 PM EDT AGE/SEX: 57 years / Male INDICATIONS: Shortness of breath. Status post intubation. CLINICAL DATA: This is the patient's initial encounter. Patient reports that signs and symptoms have been present for 1 day and indicates a pain score of Nonresponsive. MEDICAL/SURGICAL HISTORY: Chronic obstructive pulmonary disease. None. [place]PAR[place] [facility] [place]. . FINDINGS: A single AP semierect portable view of the chest was obtained and demonstrates interval intubation wi th the endotracheal tube tip approximately 2 cm above the tony. Nasogastric tube is been placed and is seen coursing through the esophagus into the stomach. There are no confluent infiltrates or effus ions. The heart and mediastinal structures remain within normal limits. There are multiple overlying electrocardiogram leads. There is lucency now projected over the left lung apex with apparent pleural reflection which could indicate a small pneumothorax. 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 CONCLUSION: 1. Lucency now projected over the left lung apex with apparent pleural reflection which could indica te a small pneumothorax. 2. Status post intubation and placement of nasogastric tube. Electronically signed by: Wilfrido Ramirez MD 02/09/2018 11:50 PM EDT
--- NOTE | 2018-02-09 23:55 | RADRPT ---
EXAM DATE: 02/09/2018 11:34 PM EDT AGE/SEX: 57 years / Male INDICATIONS: NG tube placement. CLINICAL DATA: This is the patient's initial encounter. Patient reports that signs and symptoms have been present for 1 day and indicates a pain score of Nonresponsive. MEDICAL/SURGICAL HISTORY: Chronic obstructive pulmonary disease. None. COMPARISON: No prior exams available for comparison. FINDINGS: A single AP view of the abdomen and upper pelvis was obtained and demonstrates a nasogastric tube in place with the tip projected over the mid stomach. Gas and stool is noted segmental in the colon. The re are multiple loops of nondilated air-containing small bowel. There is no evidence of free air in t his single view exam. The bony structures are intact. CONCLUSION: 1. nasogastric tube in place with the tip projected over the mid stomach. 2. Mildly nonspecific bowel gas pattern. Electronically signed by: Wilfrido Ramirez MD 02/09/2018 11:53 PM EDT
[2018-02-10] VITALS (22 sets, daily range): BP systolic 73–138; BP diastolic 50–91; PULSE 61–125; RESP 16; TEMP 98.3–100.6; O2SAT 98–100
[2018-02-10] MEDS: fentaNYL DRIP 250 ML IV PRN (00:14)
[2018-02-10] MEDS ORDERED: ROCURONIUM INJ 50 MG/5 ML VIAL IV ONE (00:15)
[2018-02-10] MEDS ORDERED: MIDAZOLAM 100 MG/100 ML INJ 100 ML IV PRN (00:15)
[2018-02-10] MEDS: CHLORHEXIDINE GLUCONATE 2 % 1 PACK (2 CLOTHS) TOP SCH (00:42)
--- NOTE | 2018-02-10 00:47 | RADRPT ---
EXAM DATE: 02/10/2018 12:44 AM EDT AGE/SEX: 57 years / Male INDICATIONS: Altered mental status. CLINICAL DATA: This is the patient's initial encounter. Patient reports that signs and symptoms have been present for 1 day and indicates a pain score of Nonresponsive. MEDICAL/SURGICAL HISTORY: Non-responsive. Non-responsive. RADIATION DOSE: 59.47 CTDI (mGy) COMPARISON: No prior exams available for comparison. TECHNIQUE: CT of the head without contrast. Using automated exposure control and adjustment of the mA and/or kV according to patient size, radiation dose was kept as low as reasonably achievable to ob tain optimal diagnostic quality images. DICOM format image data is available electronically for revi ew and comparison. FINDINGS: Cerebrum: The ventricles are normal for age. No evidence of midline shift, mass lesion, hemorrhage or acute infarction. No extraaxial fluid collections are seen. Posterior Fossa: The cerebellum and brainstem are intact. The 4th ventricle is midline. The cerebe llopontine angle is unremarkable. Extracranial: The visualized portion of the orbits is intact. Skull: The calvaria is intact. No evidence of skull fracture. CONCLUSION: 1. Negative noncontrast head CT Electronically signed by: Wilfrido Ramirez MD 02/10/2018 12:45 AM EDT
[2018-02-10] MEDS: PROPOFOL 1000 MG/100 ML INJ 100 ML IV PRN (01:08)
--- NOTE | 2018-02-10 01:08 | RADRPT ---
EXAM DATE: 02/10/2018 12:48 AM EDT AGE/SEX: 57 years / Male INDICATIONS: Altered mental status; respiratory distress. Abnormal chest x-ray exam with possible le ft pneumothorax. CLINICAL DATA: This is the patient's initial encounter. Patient reports that signs and symptoms have been present for 1 day and indicates a pain score of Nonresponsive. MEDICAL/SURGICAL HISTORY: Non-responsive. Non-responsive. RADIATION DOSE: 6.33 CTDI (mGy) COMPARISON: [facility], CHEST SINGLE AP, 02/09/2018. . TECHNIQUE: Multiple contiguous axial images were obtained through the chest without contrast. Image s were obtained in suspended respiration using multiple row detector helical technique. Using automa susy exposure control and adjustment of the mA and/or kV according to patient size, radiation dose was kept as low as reasonably achievable to obtain optimal diagnostic quality images. DICOM format imag e data is available electronically for review and comparison. FINDINGS: Lungs: The lungs are symmetrically hyperinflated with underlying emphysema. There is no pneumothorax . There is mild increased soft tissue density and thickening along the right fissure. There is scarri ng in the right lower lobe. No infiltrates or nodular densities are seen. Mediastinum: There is good visualization of the great vessels of the middle mediastinum. No evidenc e of mediastinal or hilar adenopathy/mass endotracheal tube and nasogastric tube are present. Mild co ronary artery calcifications are present. Pleurae: No evidence of focal thickening or pleural effusion. Axillae: Unremarkable. Bony Structures: Unremarkable. Miscellaneous: The examination was extended to include the upper abdomen, and both adrenal glands ar e normal in size and configuration. There is cyst in left kidney. There is hepatic steatosis. CONCLUSION: 1. Hyperinflated lungs with no pneumothorax. 2. Abnormal thickening and soft tissue density along the right major fissure most characteristic of scarring. 3. Mild coronary artery calcifications. Electronically signed by: Wilfrido Ramirez MD 02/10/2018 1:07 AM EDT
[2018-02-10] MEDS: RESP: ALBUTEROL 2.5 MG/IPRATROPIUM 0.5 MG NEB (SCH) INH ×6 (03:39→23:31)
[2018-02-10 03:52] LABS: ALBUMIN 3.7 GM/DL (3.4-5.0); ALKALINE PHOSPHATASE 71 U/L (45-117); ALT (GPT) 32 U/L (12-78); AST (GOT) 52 U/L (15-37); BICARBONATE 23.4 MEQ/L (21.0-32.0); BLOOD UREA NITROGEN 23 MG/DL (7-18); CALCIUM 7.7 MG/DL (8.5-10.1); CHLORIDE 108 MEQ/L (98-107); CREATININE 1.04 MG/DL (0.60-1.30); GLOMERULAR FILTRATION RATE 73 ML/MIN (>89); GLUCOSE,RANDOM 78 MG/DL (74-106); MAGNESIUM 1.7 MG/DL (1.5-2.5); PHOSPHORUS 3.7 MG/DL (2.5-4.9); SODIUM (NA) 141 MEQ/L (136-145); TOTAL BILIRUBIN ADULT 0.8 MG/DL (0.2-1.0); TOTAL PROTEIN 6.7 GM/DL (6.4-8.2); TROPONIN I LESS THAN 0.02 NG/ML (0.02-0.05)
[2018-02-10] MEDS: MIDAZOLAM 50 MG/50 ML INJ 50 ML IV PRN ×4 (04:25→20:28)
[2018-02-10] MEDS: INSULIN NovoLIN REGULAR SUPPLEMENTAL SCALE SQ SCH ×5 (05:40→23:12)
[2018-02-10] MEDS: DEXTROSE 50% IN WATER 50 ML VIAL(D50) IV PUSH PRN ×2 (05:41→13:22)
[2018-02-10] MEDS: MULTIVITAMIN INJ 10 ML, THIAMINE INJ 100 MG, FOLIC ACID INJ 1 MG in SODIUM CHLORID 0.9%... IV SCH (08:27)
[2018-02-10] MEDS: ARTIFICIAL TEARS OPTH SOLN 15 ML BTL EACH EYE SCH ×3 (08:27→17:29)
[2018-02-10] MEDS: HEPARIN SODIUM - SQ 10,000 UNITS/ML VIAL SQ SCH ×2 (08:28→20:08)
[2018-02-10] MEDS: SODIUM CHLORIDE 0.9% FLUSH 10 ML FLUSH IV FLUSH SCH ×2 (08:28→20:08)
[2018-02-10] MEDS: DOCUSATE SODIUM 50 MG/SENNA 8.6 MG TAB PO SCH ×2 (08:28→20:08)
[2018-02-10] MEDS: LANSOPRAZOLE SOLUTAB 30 MG TAB G-TUBE SCH (08:28)
[2018-02-10] MEDS: CHLORHEXIDINE 0.12% (ORAL KIT) 15 ML CUP MT SCH ×2 (08:29→20:08)
[2018-02-10] MEDS ORDERED: MIDAZOLAM HCL 5 MG/ML VIAL (1 ML) ONE ×2 (09:42)
[2018-02-10 10:17] LABS: AUTOMATED NEUTROPHIL # 2.4 TH/MM3 (1.8-7.7); BASOPHIL % 0.2 % (0.0-2.0); EOSINOPHIL % 0.3 % (0.0-4.0); HEMATOCRIT 35.1 % (39.0-51.0); HEMOGLOBIN 11.6 GM/DL (13.0-17.0); LYMPH % 40.8 % (9.0-44.0); LYMPHOCYTE # 2.1 TH/MM3 (1.0-4.8); MEAN CORPUSCULAR HEMOGLOBIN 36.8 PG (27.0-34.0); MEAN CORPUSCULAR HGB CONC 33.1 % (32.0-36.0); MONO % 12.6 % (0.0-8.0); MONOCYTE # 0.7 TH/MM3 (0-0.9); NEUT % 46.1 % (16.0-70.0); PLATELET COUNT 126 TH/MM3 (150-450); RED BLOOD COUNT 3.16 MIL/MM3 (4.50-5.90); RED CELL DISTRIBUTION WIDTH 14.4 % (11.6-17.2); WHITE BLOOD COUNT 5.2 TH/MM3 (4.0-11.0)
[2018-02-10 10:22] LABS: PROTHROMBIN TIME - PATIENT 10.5 SEC (9.8-11.6)
--- NOTE | 2018-02-10 11:35 | HHI.CCPN ---
Subjective Remarks/Hospital Course This is a 57-year-old male. Date of admission 02/09/2018. Past medical history includes alcohol use and anxiety with chronic alprazolam use. Patient last consumed alcohol 2 days ago according to family per records. Patient presented to have assessed at being found wandering confused. Patient was awake and oriented to person according to previous records. Baseline laboratories revealed a sodium 133, macrocytic anemia, elevated AST and creatinine 1.35. TSH within normal limits. Patient became more delirious and received 20 mg chlordiazepoxide and 5 mg lorazepam. Despite this, patient became more tachycardic when I evaluated patient patient was in the 190s patient was quite diaphoretic the respiratory rate in the 50s. Please note initial troponin was 0.02. Alcohol level less than 3. Urine drug screen positive for benzodiazepines only Patient was intubated myself using 20 mg etomidate and [address] pending SUBJ 02/10: Extremely agitated today morning thrashing about not following commands. Required additional 5 mg Versed push while on Versed infusion, also rocuronium 50 mg given for ventilator synchrony. Due to severe agitation and risk of self extubation. Additional 1 L fluid bolus given for hypotension. CT of the head and chest negative for acute finding. Lactic acid elevated at 4.3, additional fluid boluses ordered Objective Vital Signs Date Time Temp Pulse Resp B/P (MAP) Pulse Ox O2 Delivery O2 Flow Rate FiO2 02/10/18 10:25 100 35 02/10/18 06:00 125 02/10/18 04:00 98.3 16 73/52 (59) 02/09/18 23:14 Ventilator 02/09/18 22:30 2.00 Intake and Output 02/10/18 02/10/18 02/11/18 08:00 16:00 00:00 Intake Total 561 ml Output Total 200 ml Balance 361 ml Result Diagram: 02/10/18 0950 02/10/18 0308 Other Results Microbiology Date/Time Source Procedure Growth Status 02/09/18 23:20 Nasal Aspirate Influenza Types A,B Antigen (LAURIE) - Final NEGATIVE FOR FLU A AND B ANTIGEN.... Complete 02/09/18 00:00 Urine Catheterized Urine Legionella Antigen - Final PRESUMPTIVE NEGATIVE FOR LEGIONELLA P... Complete 02/09/18 00:00 Urine Catheterized Urine Streptococcus pneumoniae Antigen (M - Final PRESUMPTIVE NEGATIVE FOR STREPTOCOCCU... Complete Laboratory Tests Test 02/09/18 23:39 Blood Gas Puncture Site RT RADIAL Blood Gas Patient Temperature 98.6 Blood Gas HCO3 21 mmol/L (22-26) Blood Gas Base Excess -3.5 mmol/L (-2-2) Blood Gas Oxygen Saturation 93 % (90-100) Arterial Blood pH 7.37 (7.380-7.420) Arterial Blood Partial Pressure CO2 37 mmHg (38-42) Arterial Blood Partial Pressure O2 84 mmHG (61-120) Arterial Blood Oxygen Content 14.7 Vol % (12.0-20.0) Arterial Blood Carboxyhemoglobin 2.3 % (0-4) Arterial Blood Methemoglobin 0.5 % (0-2) Blood Gas Hemoglobin 11.3 G/DL (12.0-16.0) Oxygen Delivery Device VENTILATOR Blood Gas Ventilator Setting PRVC / AC / Blood Gas Inspired Oxygen 40 % Imaging Last Impressions Chest X-Ray 02/09/18 190 Signed Impressions: CONCLUSION: The lungs are hyperinflated consistent with COPD. No acute infiltrate or effusi on. Chronic right distal clavicular fracture. Objective Remarks GENERAL: 57-year-old male currently orotracheally intubated, agitated and thrashing about SKIN: Warm and moist. No rash. HEAD: Atraumatic. Normocephalic. EYES: Pupils equal and round about 3 mm bilaterally and reactive. No scleral icterus. No injection or drainage. ENT: No nasal bleeding or discharge. Mucous membranes pink and moist. NECK: Trachea midline. No JVD. CARDIOVASCULAR: Tachycardic, RR. S1, S2 no S4. Without murmur RESPIRATORY: No accessory muscle use. Clear to auscultation. Breath sounds equal bilaterally. GASTROINTESTINAL: Abdomen soft, non-tender, nondistended. Hepatic and splenic margins not palpable. MUSCULOSKELETAL: Extremities without clubbing, cyanosis, or edema. No obvious deformities. NEUROLOGICAL: Intubated sedated with Versed infusion. Prior to neuromuscular paralysis patient was stretching about high risk of self extubation. Not following commands moving all 4 extremities strongly A/P Assessment and Plan Neuro/Psych: Acute toxic metabolic encephalopathy EtOH withdrawal Currently on Versed and fentanyl drips for sedation/analgesia while intubated Propofol discontinued due to hypotension Use neuromuscular paralysis for patient safety avoid self extubation Goal of RASS -2 Daily sedation vacation, once alcohol withdrawal symptoms are controlled CT brain negative for acute finding Currently in vitamin bag including thiamine, multivitamin and folate daily Continue scheduled Librium CV: Sinus tachycardia Hypotension Lactic acidosis Initial troponin 0.02. Will recheck in a.m. Currently on normal saline at 84 cc Additional 2 L normal saline bolus Use Manjinder-Synephrine if needed Trend lactic acid Resp: Acute respiratory failure [facility] 16/525/08/26/39 Ventilator bundle Albuterol/ipratropium aerosols every 4 hours with albuterol aerosols every 2 hours as needed dyspnea Spontaneous breathing trials when clinically indicated GI: Elevated AST N.p.o. status Start tube feeds with Jevity Lansoprazole for GI prophylaxis Docusate sodium/senna 1 tablet twice daily for bowel regimen : Dent catheter for accurate I's and O's in a critically ill patient Endo: TSH was 1.12 SSI to maintain euglycemia Renal: Acute kidney injury Monitor urine output Accurate I's and O's Recheck BMP in a.m. after hydration. Heme: Macrocytic anemia Monitor CBC daily. Follow trends No indication for transfusion of blood products at this time ID: Follow-up blood cultures 2, sputum. UA negative Elevated lactic acid most likely from underperfusion FEN: Hyponatremia Replace electrolytes as clinically indicated per ICU electrolyte protocol MSK: Chronic R clavicle fx PT evaluate and treat Access -utilize peripheral IV. Central line if indicated Prophylaxis -GI -lansoprazole -DVT -SCD/heparin subcu with negative CT brain Critical Care: The total critical care time was 35 minutes. Time to perform other separately billable procedures was not included in the critical care time. Lizzeth Jaramillo MD Feb 10, 2018 11:35
[2018-02-10] MEDS ORDERED: SODIUM CHLOR 0.9% 1000 ML INJ 1,000 ML IV ONE ×2 (11:45→15:30)
--- NOTE | 2018-02-10 12:28 | EKG ---
Date Performed: 02/09/2018 Time Performed: 19:55:43 PTAGE: 57 years EKG: SINUS TACHYCARDIA ABNORMAL RHYTHM ECG NO PREVIOUS TRACING DOCTOR: Rahul Adhikari Interpretating Date/Time 02/10/2018 12:25:59
--- NOTE | 2018-02-10 14:34 | MG ---
cc: Nikko Caban MD, PhD EEG TEST NUMBER: [id number] TECHNIQUE: A 17-channel EEG. DESCRIPTION: The background rhythm reveals mild slowing in the theta range. Superimposed upon this is alpha rhythm, frequency of 8-10 Hz, amplitude 20-30 microvolts. There are no lateralizing features. There are no epileptiform discharges present. Photic stimulation does not elicit a driving response. There are a couple of areas of sharp activity in the left temporal lobe, which I think is nonspecific. INTERPRETATION: This study reveals mild slowing in the theta range superimposed on an alpha rhythm, most consistent with a mild encephalopathic state. Nikko Caban MD, PhD ALE/SB , 02:22 PM , 02:33 PM
[2018-02-10] MEDS: SODIUM CHLOR 0.9% 1000 ML INJ 1,000 ML IV SCH ×2 (14:35→23:10)
[2018-02-10] MEDS ORDERED: PHENYLEPHRINE INJ 40 MG in DEXTROSE 5% IN WATE 500 ML INJ 496 ML IV PRN ×2 (15:00)
[2018-02-10] MEDS ORDERED: TERBUTALINE INJ 1 MG/ML AMP SQ PRN (15:00)
[2018-02-10] MEDS: ACETAMINOPHEN 325 MG TAB PO PRN (16:14)
[2018-02-11] VITALS (19 sets, daily range): BP systolic 87–122; BP diastolic 55–69; PULSE 72–144; RESP 13–17; TEMP 98.3–100.6; O2SAT 96–100
[2018-02-11] MEDS: MIDAZOLAM 50 MG/50 ML INJ 50 ML IV PRN ×2 (01:33→06:33)
[2018-02-11] MEDS: RESP: ALBUTEROL 2.5 MG/IPRATROPIUM 0.5 MG NEB (SCH) INH ×5 (03:11→19:40)
[2018-02-11] MEDS: CHLORHEXIDINE GLUCONATE 2 % 1 PACK (2 CLOTHS) TOP SCH (03:30)
[2018-02-11] MEDS: INSULIN NovoLIN REGULAR SUPPLEMENTAL SCALE SQ SCH ×3 (05:52→18:00)
[2018-02-11] MEDS: ARTIFICIAL TEARS OPTH SOLN 15 ML BTL EACH EYE SCH ×3 (07:41→18:00)
[2018-02-11] MEDS: CHLORHEXIDINE 0.12% (ORAL KIT) 15 ML CUP MT SCH ×2 (07:41→20:28)
[2018-02-11] MEDS: DOCUSATE SODIUM 50 MG/SENNA 8.6 MG TAB PO SCH ×2 (07:42→20:29)
[2018-02-11] MEDS: LANSOPRAZOLE SOLUTAB 30 MG TAB G-TUBE SCH (07:42)
[2018-02-11] MEDS: HEPARIN SODIUM - SQ 10,000 UNITS/ML VIAL SQ SCH ×2 (07:42→20:29)
[2018-02-11] MEDS: SODIUM CHLORIDE 0.9% FLUSH 10 ML FLUSH IV FLUSH SCH ×2 (07:42→20:29)
[2018-02-11] MEDS: PROPOFOL 1000 MG/100 ML INJ 100 ML IV PRN (07:43)
[2018-02-11] MEDS: MULTIVITAMIN INJ 10 ML, THIAMINE INJ 100 MG, FOLIC ACID INJ 1 MG in SODIUM CHLORID 0.9%... IV SCH (07:44)
[2018-02-11] MEDS: fentaNYL DRIP 250 ML IV PRN (07:44)
--- NOTE | 2018-02-11 08:26 | HHI.CCPN ---
Subjective Remarks/Hospital Course This is a 57-year-old male. Date of admission 02/09/2018. Past medical history includes alcohol use and anxiety with chronic alprazolam use. Patient last consumed alcohol 2 days ago according to family per records. Patient presented to have assessed at being found wandering confused. Patient was awake and oriented to person according to previous records. Baseline laboratories revealed a sodium 133, macrocytic anemia, elevated AST and creatinine 1.35. TSH within normal limits. Patient became more delirious and received 20 mg chlordiazepoxide and 5 mg lorazepam. Despite this, patient became more tachycardic when I evaluated patient patient was in the 190s patient was quite diaphoretic the respiratory rate in the 50s. Please note initial troponin was 0.02. Alcohol level less than 3. Urine drug screen positive for benzodiazepines only Patient was intubated myself using 20 mg etomidate and [address] pending SUBJ 02/10: Extremely agitated today morning thrashing about not following commands. Required additional 5 mg Versed push while on Versed infusion, also rocuronium 50 mg given for ventilator synchrony. Due to severe agitation and risk of self extubation. Additional 1 L fluid bolus given for hypotension. CT of the head and chest negative for acute finding. Lactic acid elevated at 4.3, additional fluid boluses ordered 02/11: Currently intubated sedated with Versed propofol and fentanyl. Good oxygen saturation. Gets very agitated on sedation lightening. Lactic acidosis has normalized Objective Vital Signs Date Time Temp Pulse Resp B/P (MAP) Pulse Ox O2 Delivery O2 Flow Rate FiO2 02/11/18 06:00 95 02/11/18 04:15 96 35 02/11/18 04:00 100.1 17 122/69 (86) 02/09/18 23:14 Ventilator 02/09/18 22:30 2.00 Intake and Output 02/11/18 02/11/18 02/12/18 08:00 16:00 00:00 Intake Total 150 ml Output Total 1453 ml Balance -1303 ml Result Diagram: 02/10/18 0950 02/10/18 030 Other Results Microbiology Date/Time Source Procedure Growth Status 02/09/18 23:20 Nasal Aspirate Influenza Types A,B Antigen (LAURIE) - Final NEGATIVE FOR FLU A AND B ANTIGEN.... Complete 02/09/18 00:00 Urine Catheterized Urine Legionella Antigen - Final PRESUMPTIVE NEGATIVE FOR LEGIONELLA P... Complete 02/09/18 00:00 Urine Catheterized Urine Streptococcus pneumoniae Antigen (M - Final PRESUMPTIVE NEGATIVE FOR STREPTOCOCCU... Complete Imaging Last Impressions Chest X-Ray 02/09/181901 Signed Impressions: CONCLUSION: The lungs are hyperinflated consistent with COPD. No acute infiltrate or effusi on. Chronic right distal clavicular fracture. Objective Remarks GENERAL: 57-year-old male currently orotracheally intubated, heavily sedated SKIN: Warm and moist. No rash. HEAD: Atraumatic. Normocephalic. EYES: Pupils equal and round about 3 mm bilaterally and reactive. No scleral icterus. No injection or drainage. ENT: No nasal bleeding or discharge. Mucous membranes pink and moist. NECK: Trachea midline. No JVD. CARDIOVASCULAR: Tachycardic, RR. S1, S2 no S4. Without murmur RESPIRATORY: No accessory muscle use. Clear to auscultation. Breath sounds equal bilaterally. GASTROINTESTINAL: Abdomen soft, non-tender, nondistended. Hepatic and splenic margins not palpable. MUSCULOSKELETAL: Extremities without clubbing, cyanosis, or edema. No obvious deformities. NEUROLOGICAL: Intubated heavily sedated, on sedation lightening patient moves all extremities. Gets very agitated A/P Assessment and Plan Neuro/Psych: Acute toxic metabolic encephalopathy EtOH withdrawal Currently on Versed, propofol and fentanyl drips for sedation/analgesia while intubated Start Precedex to facilitate ventilator weaning Goal of RASS -[address] brain negative for acute finding. EEG mild encephalopathy. No indication for MRI will cancel it Currently in vitamin bag including thiamine, multivitamin and folate daily Continue scheduled Librium, increase to 50 q8 PO CV: Sinus tachycardia Hypotension Lactic acidosis-resolved Lactic acidosis has resolved Currently on normal saline at 84 cc Additional 2 L normal saline bolus Use Manjinder-Synephrine if needed Resp: Acute respiratory failure [facility] 16/08/26/39, start CPAP trials for possible extubation Ventilator bundle. Albuterol/ipratropium aerosols every 4 hours with albuterol aerosols every 2 hours as needed dyspnea GI: Elevated AST Hold Jevity for possible extubation Lansoprazole for GI prophylaxis Docusate sodium/senna 1 tablet twice daily for bowel regimen : Dent catheter for accurate I's and O's in a critically ill patient Endo: TSH was 1.12 SSI to maintain euglycemia Renal: Acute kidney injury Monitor urine output Accurate I's and O's Heme: Macrocytic anemia Monitor CBC daily. Follow trends No indication for transfusion of blood products at this time ID: Follow-up blood cultures 2, sputum. UA negative Elevated lactic acid most likely from underperfusion FEN: Hyponatremia Replace electrolytes as clinically indicated per ICU electrolyte protocol MSK: Chronic R clavicle fx PT evaluate and treat Access -utilize peripheral IV. Central line if indicated Prophylaxis -GI -lansoprazole -DVT -SCD/heparin subcu Critical Care: Level 2 Lizzeth Jaramillo MD Feb 11, 2018 08:26
[2018-02-11] MEDS ORDERED: LORazepam 2 MG/ML VIAL IV PUSH PRN ×3 (08:45)
[2018-02-11] MEDS ORDERED: LORazepam 2 MG TAB PO PRN (08:45)
[2018-02-11] MEDS ORDERED: FLUMAZENIL 0.5 MG/5 ML VIAL IV PUSH PRN (08:45)
[2018-02-11] MEDS ORDERED: LORazepam 1 MG TAB PO PRN (08:45)
[2018-02-11] MEDS: DEXMEDETOMIDINE INJ 200 MCG in SODIUM CHLORIDE 0.9% INJ 50 ML IV PRN ×2 (09:00→13:45)
[2018-02-11] MEDS: SODIUM CHLOR 0.9% 1000 ML INJ 1,000 ML IV SCH (10:27)
[2018-02-11] MEDS: chlordiazePOXIDE 25 MG CAP PO SCH ×4 (10:27→18:00)
[2018-02-11] MEDS: DEXTROSE 50% IN WATER 50 ML VIAL(D50) IV PUSH PRN (13:57)
[2018-02-12] VITALS (17 sets, daily range): BP systolic 81–135; BP diastolic 51–69; PULSE 82–120; RESP 11–22; TEMP 98.1–98.9; O2SAT 95–100
[2018-02-12] MEDS: SODIUM CHLOR 0.9% 1000 ML INJ 1,000 ML IV SCH (00:21)
[2018-02-12] MEDS: RESP: ALBUTEROL 2.5 MG/IPRATROPIUM 0.5 MG NEB (SCH) INH ×5 (00:46→23:54)
[2018-02-12] MEDS: LORazepam 2 MG/ML VIAL IV PUSH PRN ×3 (03:22→20:21)
[2018-02-12] MEDS: CHLORHEXIDINE GLUCONATE 2 % 1 PACK (2 CLOTHS) TOP SCH ×2 (04:00→21:00)
[2018-02-12] MEDS: INSULIN NovoLIN REGULAR SUPPLEMENTAL SCALE SQ SCH ×5 (06:00→23:44)
[2018-02-12] MEDS: LANSOPRAZOLE SOLUTAB 30 MG TAB G-TUBE SCH (07:25)
[2018-02-12] MEDS: DOCUSATE SODIUM 50 MG/SENNA 8.6 MG TAB PO SCH ×2 (07:25→20:20)
[2018-02-12] MEDS: chlordiazePOXIDE 25 MG CAP PO SCH ×3 (07:26→18:00)
[2018-02-12] MEDS: HEPARIN SODIUM - SQ 10,000 UNITS/ML VIAL SQ SCH ×2 (07:26→20:20)
[2018-02-12] MEDS: SODIUM CHLORIDE 0.9% FLUSH 10 ML FLUSH IV FLUSH SCH ×2 (07:27→20:20)
[2018-02-12] MEDS: CHLORHEXIDINE 0.12% (ORAL KIT) 15 ML CUP MT SCH ×2 (07:27→20:00)
[2018-02-12] MEDS: ARTIFICIAL TEARS OPTH SOLN 15 ML BTL EACH EYE SCH ×3 (07:27→16:01)
[2018-02-12] MEDS: MULTIVITAMIN INJ 10 ML, THIAMINE INJ 100 MG, FOLIC ACID INJ 1 MG in SODIUM CHLORID 0.9%... IV SCH (08:07)
--- NOTE | 2018-02-12 09:24 | HHI.CCPN ---
Subjective Remarks/Hospital Course This is a 57-year-old male. Date of admission 02/09/2018. Past medical history includes alcohol use and anxiety with chronic alprazolam use. Patient last consumed alcohol 2 days ago according to family per records. Patient presented to have assessed at being found wandering confused. Patient was awake and oriented to person according to previous records. Baseline laboratories revealed a sodium 133, macrocytic anemia, elevated AST and creatinine 1.35. TSH within normal limits. Patient became more delirious and received 20 mg chlordiazepoxide and 5 mg lorazepam. Despite this, patient became more tachycardic when I evaluated patient patient was in the 190s patient was quite diaphoretic the respiratory rate in the 50s. Please note initial troponin was 0.02. Alcohol level less than 3. Urine drug screen positive for benzodiazepines only Patient was intubated myself using 20 mg etomidate and [address] pending SUBJ 02/10: Extremely agitated today morning thrashing about not following commands. Required additional 5 mg Versed push while on Versed infusion, also rocuronium 50 mg given for ventilator synchrony. Due to severe agitation and risk of self extubation. Additional 1 L fluid bolus given for hypotension. CT of the head and chest negative for acute finding. Lactic acid elevated at 4.3, additional fluid boluses ordered 02/11: Currently intubated sedated with Versed propofol and fentanyl. Good oxygen saturation. Gets very agitated on sedation lightening. Lactic acidosis has normalized 02/12: Patient was extubated yesterday tolerating well. Remains tremulous but better oriented and cooperative. Mental status appears back to baseline Objective Vital Signs Date Time Temp Pulse Resp B/P (MAP) Pulse Ox O2 Delivery O2 Flow Rate FiO2 02/12/18 08:00 118 02/12/18 08:00 98.1 22 105/56 (72) 95 02/12/18 07:23 Nasal Cannula 3.00 02/11/18 16:10 36 Intake and Output 02/12/18 02/12/18 02/13/18 08:00 16:00 00:00 Intake Total 1240 ml Output Total 800 ml Balance 440 ml Result Diagram: 02/10/18 0950 02/10/18 0308 Other Results Microbiology Date/Time Source Procedure Growth Status 02/09/18 23:20 Nasal Aspirate Influenza Types A,B Antigen (LAURIE) - Final NEGATIVE FOR FLU A AND B ANTIGEN.... Complete Imaging Last Impressions Chest X-Ray 02/09/18 1902 Signed Impressions: CONCLUSION: The lungs are hyperinflated consistent with COPD. No acute infiltrate or effusi on. Chronic right distal clavicular fracture. Objective Remarks GENERAL: 57-year-old male currently lying in bed no acute distress SKIN: Warm and moist. No rash. HEAD: Atraumatic. Normocephalic. EYES: Pupils equal and round about 3 mm bilaterally and reactive. No scleral icterus. No injection or drainage. ENT: No nasal bleeding or discharge. Mucous membranes pink and moist. NECK: Trachea midline. No JVD. CARDIOVASCULAR: Tachycardic, RR. S1, S2 no S4. Without murmur RESPIRATORY: No accessory muscle use. Clear to auscultation. Breath sounds equal bilaterally. GASTROINTESTINAL: Abdomen soft, non-tender, nondistended. Hepatic and splenic margins not palpable. MUSCULOSKELETAL: Extremities without clubbing, cyanosis, or edema. No obvious deformities. NEUROLOGICAL: Alert awake oriented following commands. Tremulous but no focal deficits A/P Assessment and Plan Neuro/Psych: Acute toxic metabolic encephalopathy Alcohol withdrawal syndrome DC all continuous sedation, continue CIWA protocol Continue scheduled Librium, 50 q8 PO Alcohol withdrawal and seizure precautions CT brain negative for acute finding. EEG mild encephalopathy. No indication for MRI will cancel it Currently in vitamin bag including thiamine, multivitamin and folate daily CV: Sinus tachycardia Hypotension Lactic acidosis-resolved Lactic acidosis has resolved Currently on normal saline at 84 cc Additional 2 L normal saline bolus Use Manjinder-Synephrine if needed Resp: Acute respiratory failure Extubated yesterday tolerating well Albuterol/ipratropium aerosols every 4 hours with albuterol aerosols every 2 hours as needed dyspnea GI: Elevated AST Bedside swallow eval, start heart healthy diet if passed Lansoprazole for GI prophylaxis Docusate sodium/senna 1 tablet twice daily for bowel regimen : Discontinue Dent Endo: TSH was 1.12 SSI to maintain euglycemia Renal: Acute kidney injury Monitor urine output Accurate I's and O's Heme: Macrocytic anemia Monitor CBC daily. Follow trends No indication for transfusion of blood products at this time ID: Follow-up blood cultures 2, sputum. UA negative Elevated lactic acid most likely from underperfusion FEN: Hyponatremia Replace electrolytes as clinically indicated per ICU electrolyte protocol MSK: Chronic R clavicle fx PT evaluate and treat Access -utilize peripheral IV. Central line if indicated Prophylaxis -GI -lansoprazole -DVT -SCD/heparin subcu Critical Care: Level 2 Consult [facility] to assume care in am 02/13/18 Lizzeth Jaramillo MD Feb 12, 2018 09:24
[2018-02-13] VITALS (16 sets, daily range): BP systolic 114–132; BP diastolic 62–74; PULSE 81–108; RESP 14–18; TEMP 98.2–98.9; O2SAT 96–99
[2018-02-13] MEDS: INSULIN NovoLIN REGULAR SUPPLEMENTAL SCALE SQ SCH ×3 (06:00→17:52)
[2018-02-13] MEDS: ACETAMINOPHEN 325 MG TAB PO PRN ×2 (06:33→21:24)
[2018-02-13] MEDS: RESP: ALBUTEROL 2.5 MG/IPRATROPIUM 0.5 MG NEB (SCH) INH ×3 (07:25→23:34)
[2018-02-13] MEDS: CHLORHEXIDINE 0.12% (ORAL KIT) 15 ML CUP MT SCH ×2 (08:00→20:56)
[2018-02-13] MEDS: DOCUSATE SODIUM 50 MG/SENNA 8.6 MG TAB PO SCH ×2 (08:03→20:57)
[2018-02-13] MEDS: LANSOPRAZOLE SOLUTAB 30 MG TAB G-TUBE SCH (08:03)
[2018-02-13] MEDS: chlordiazePOXIDE 25 MG CAP PO SCH ×3 (08:03→17:53)
[2018-02-13] MEDS: SODIUM CHLORIDE 0.9% FLUSH 10 ML FLUSH IV FLUSH SCH ×2 (08:04→20:56)
[2018-02-13] MEDS: HEPARIN SODIUM - SQ 10,000 UNITS/ML VIAL SQ SCH ×2 (08:04→20:57)
[2018-02-13] MEDS: ARTIFICIAL TEARS OPTH SOLN 15 ML BTL EACH EYE SCH ×3 (08:04→17:52)
[2018-02-13] MEDS: MULTIVITAMIN INJ 10 ML, THIAMINE INJ 100 MG, FOLIC ACID INJ 1 MG in SODIUM CHLORID 0.9%... IV SCH (08:07)
--- NOTE | 2018-02-13 13:21 | HHI.PR ---
Subjective Remarks States that he did eat breakfast earlier this morning. Not too anxious. No other concerns at this time Objective Vitals Vital Signs Date Time Temp Pulse Resp B/P (MAP) Pulse Ox O2 Delivery O2 Flow Rate FiO2 02/13/18 08:00 98.2 97 18 125/64 (84) 99 02/13/18 08:00 97 02/13/18 07:33 16 02/13/18 07:25 98 Nasal Cannula 3.00 02/13/18 07:00 99 Nasal Cannula 3.00 02/13/18 06:00 108 02/13/18 04:00 98.9 102 17 132/74 (93) 97 02/13/18 04:00 101 02/13/18 03:03 98 Nasal Cannula 3.00 02/13/18 02:00 97 02/13/18 00:00 98.8 95 17 114/62 (79) 98 02/13/18 00:00 105 02/12/18 23:55 97 Nasal Cannula 3.00 02/12/18 22:00 87 02/12/18 20:00 82 02/12/18 20:00 98.7 86 15 99/56 (70) 99 02/12/18 19:19 98 Nasal Cannula 3.00 02/12/18 19:00 98 Nasal Cannula 3.00 02/12/18 18:00 82 02/12/18 16:00 85 12 97/53 (68) 99 02/12/18 16:00 85 02/12/18 14:00 86 I/O 02/12/18 02/12/18 02/12/18 02/13/18 02/13/18 02/13/18 07:00 15:00 23:00 07:00 15:00 23:00 Intake Total 1240 ml 720 ml 480 ml Output Total 800 ml 750 ml 450 ml Balance 440 ml -30 ml 30 ml Intake Oral 240 ml 720 ml 480 ml IV Total 1000 ml Tube Feeding 0 ml 0 ml Output Urine Total 800 ml 750 ml 450 ml Gastric Drainage Total 0 ml # Bowel Movements 0 0 0 Result Diagram: 02/10/18 0950 02/10/18 0308 Objective Remarks GENERAL: This is a well-nourished, well-developed patient, in no apparent distress. CARDIOVASCULAR: Regular rate and rhythm RESPIRATORY: Clear to auscultation. Breath sounds equal bilaterally. No wheezes , rales, or rhonchi. MUSCULOSKELETAL: Extremities without clubbing, cyanosis, or edema. Mild bilateral upper extremity tremors NEURO: Alert & Oriented x2 to person, place, Moves all ext x4 Skin: Bilateral shoulder and chest tattoos A/P Problem List: (1) Acute respiratory failure ICD Code: J96.00 - Acute respiratory failure, unspecified whether with hypoxia or hypercapnia Status: Resolved (2) Macrocytic anemia ICD Code: D53.9 - Nutritional anemia, unspecified Status: Chronic (3) Hyponatremia ICD Code: E87.1 - Hypo-osmolality and hyponatremia Status: Resolved (4) Elevated AST (SGOT) ICD Code: R74.0 - Nonspecific elevation of levels of transaminase and lactic acid dehydrogenase [LDH] Status: Resolved (5) Acute kidney injury ICD Code: N17.9 - Acute kidney failure, unspecified Status: Acute (6) Chronic prescription benzodiazepine use ICD Code: Z79.899 - Other intermediate (current) drug therapy Status: Chronic (7) Smoking ICD Code: F17.200 - Nicotine dependence, unspecified, uncomplicated Status: Chronic (8) Anxiety disorder ICD Code: F41.9 - Anxiety disorder, unspecified Status: Chronic (9) CKD (chronic kidney disease) stage 2, GFR 60-89 ml/min ICD Code: N18.2 - Chronic kidney disease, stage 2 (mild) Status: Chronic Assessment and Plan Acute toxic metabolic encephalopathy Alcohol withdrawal syndrome continue CIWA protocol Continue scheduled Librium and wean to 25 q8 PO from 50 mg OI Q 8hr Alcohol withdrawal and seizure precautions Currently in vitamin bag including thiamine, multivitamin and folate daily Sinus tachycardia Hypotension - resolved Lactic acidosis-resolved Lactic acidosis has resolved Currently on normal saline at 84 cc Acute respiratory failure -resolved Extubated yesterday tolerating well currently on 3 L oxygen wean as tolerated., Encourage incentive spirometry use Albuterol/ipratropium aerosols every 4 hours with albuterol aerosols every 2 hours as needed dyspnea Acute kidney injury superimposed on CKD stage 2 - resolved Monitor urine output Accurate I's and O's, avoid nephrotoxins Macrocytic anemia Monitor CBC daily. Follow trends No indication for transfusion of blood products at this time Hyponatremia Replace electrolytes as clinically indicated per ICU electrolyte protocol PT evaluate and treat Access -utilize peripheral IV. Central line if indicated GI and DVT prophylaxis -GI -lansoprazole -DVT -SCD/heparin subcu Discharge Planning Transfer to [facility] unit, disposition home with home health care versus rehab pending clinical course. Problem Qualifiers (1) Acute respiratory failure: Qualified Codes: J96.00 - Acute respiratory failure, unspecified whether with hypoxia or hypercapnia (2) Anxiety disorder: Qualified Codes: F41.1 - Generalized anxiety disorder Tiffany Milligan MD Feb 13, 2018 13:21
[2018-02-14] VITALS (16 sets, daily range): BP systolic 118–166; BP diastolic 67–85; PULSE 83–99; RESP 14–25; TEMP 98.3–99.1; O2SAT 93–97
[2018-02-14] MEDS: CHLORHEXIDINE GLUCONATE 2 % 1 PACK (2 CLOTHS) TOP SCH (04:00)
[2018-02-14] MEDS: INSULIN NovoLIN REGULAR SUPPLEMENTAL SCALE SQ SCH ×2 (05:10)
[2018-02-14] MEDS: LANSOPRAZOLE SOLUTAB 30 MG TAB G-TUBE SCH (07:53)
[2018-02-14] MEDS: chlordiazePOXIDE 25 MG CAP PO SCH (07:54)
[2018-02-14] MEDS: HEPARIN SODIUM - SQ 10,000 UNITS/ML VIAL SQ SCH ×2 (07:54→21:30)
[2018-02-14] MEDS: DOCUSATE SODIUM 50 MG/SENNA 8.6 MG TAB PO SCH ×2 (07:55→21:30)
[2018-02-14] MEDS: SODIUM CHLORIDE 0.9% FLUSH 10 ML FLUSH IV FLUSH SCH ×2 (07:55→21:30)
[2018-02-14] MEDS: RESP: ALBUTEROL 2.5 MG/IPRATROPIUM 0.5 MG NEB (SCH) INH ×3 (07:55→21:24)
[2018-02-14] MEDS: CHLORHEXIDINE 0.12% (ORAL KIT) 15 ML CUP MT SCH ×2 (07:57→20:00)
[2018-02-14] MEDS: MULTIVITAMIN INJ 10 ML, THIAMINE INJ 100 MG, FOLIC ACID INJ 1 MG in SODIUM CHLORID 0.9%... IV SCH (07:57)
[2018-02-14] MEDS: ARTIFICIAL TEARS OPTH SOLN 15 ML BTL EACH EYE SCH ×3 (07:58→18:00)
[2018-02-14] MEDS: ACETAMINOPHEN 325 MG TAB PO PRN (11:36)
--- NOTE | 2018-02-14 12:07 | HHI.PR ---
Subjective Remarks Patient states that he is feeling better. Tolerating diet. Less anxious. Did ambulate outside of his room Objective Vitals Vital Signs Date Time Temp Pulse Resp B/P (MAP) Pulse Ox O2 Delivery O2 Flow Rate FiO2 02/14/18 08:00 98.8 97 16 166/85 (112) 97 02/14/18 08:00 90 02/14/18 07:55 97 Nasal Cannula 2.00 02/14/18 07:00 97 Nasal Cannula 3.00 02/14/18 06:00 91 02/14/18 04:35 97 Nasal Cannula 3.00 02/14/18 04:00 98.4 97 14 136/73 (94) 95 02/14/18 04:00 97 02/14/18 02:00 86 02/14/18 00:00 98.3 97 16 130/69 (89) 94 02/14/18 00:00 97 02/13/18 23:36 96 Nasal Cannula 3.00 02/13/18 22:24 16 02/13/18 22:00 101 02/13/18 20:00 98.5 92 15 132/68 (89) 97 02/13/18 20:00 92 02/13/18 19:21 96 Nasal Cannula 3.00 02/13/18 19:00 96 Nasal Cannula 3.00 02/13/18 18:00 90 02/13/18 16:00 98.8 100 16 125/65 (85) 97 02/13/18 16:00 91 02/13/18 14:00 94 I/O 02/13/18 02/13/18 02/13/18 02/14/18 02/14/18 02/14/18 07:00 15:00 23:00 07:00 15:00 23:00 Intake Total 480 ml 511.2 ml 520 ml 120 ml Output Total 450 ml 800 ml 1250 ml Balance 30 ml 511.2 ml -280 ml -1130 ml Intake Oral 480 ml 520 ml 120 ml IV Total 511.2 ml Tube Feeding 0 ml Output Urine Total 450 ml 800 ml 1250 ml # Bowel Movements 0 0 Result Diagram: 02/10/18 0950 02/10/18 0308 Objective Remarks GENERAL: This is a well-nourished, well-developed patient, in no apparent distress. CARDIOVASCULAR: Regular rate and rhythm RESPIRATORY: Clear to auscultation. Breath sounds equal bilaterally. No wheezes , rales, or rhonchi. MUSCULOSKELETAL: Extremities without clubbing, cyanosis, or edema. Mild bilateral upper extremity tremors NEURO: Alert & Oriented x3 to person, place, time moves all ext x4 Skin: Bilateral shoulder and chest tattoos A/P Problem List: (1) Acute respiratory failure ICD Code: J96.00 - Acute respiratory failure, unspecified whether with hypoxia or hypercapnia Status: Resolved (2) Macrocytic anemia ICD Code: D53.9 - Nutritional anemia, unspecified Status: Chronic (3) Hyponatremia ICD Code: E87.1 - Hypo-osmolality and hyponatremia Status: Resolved (4) Elevated AST (SGOT) ICD Code: R74.0 - Nonspecific elevation of levels of transaminase and lactic acid dehydrogenase [LDH] Status: Resolved (5) Acute kidney injury ICD Code: N17.9 - Acute kidney failure, unspecified Status: Acute (6) Chronic prescription benzodiazepine use ICD Code: Z79.899 - Other ferry terminal agent (current) drug therapy Status: Chronic (7) Smoking ICD Code: F17.200 - Nicotine dependence, unspecified, uncomplicated Status: Chronic (8) Anxiety disorder ICD Code: F41.9 - Anxiety disorder, unspecified Status: Chronic (9) CKD (chronic kidney disease) stage 2, GFR 60-89 ml/min ICD Code: N18.2 - Chronic kidney disease, stage 2 (mild) Status: Chronic Assessment and Plan Acute toxic metabolic encephalopathyresolved Alcohol withdrawal syndrome continue CIWA protocol Continue scheduled Librium and wean to 10 mg p.o. twice daily and hold for sedation Alcohol withdrawal and seizure precautions Currently in vitamin bag including thiamine, multivitamin and folate daily and will change to oral supplements Sinus tachycardia Hypotension - resolved Lactic acidosis-resolved Lactic acidosis has resolved Currently on normal saline at 84 cc Acute respiratory failure -resolved Extubated yesterday tolerating well currently on 3 L oxygen wean as tolerated., Encourage incentive spirometry use , continue to wean off oxygen. Albuterol/ipratropium aerosols every 4 hours with albuterol aerosols every 2 hours as needed dyspnea Obtain a walk fit test in the morning. Acute kidney injury superimposed on CKD stage 2 - resolved Monitor urine output Accurate I's and O's, avoid nephrotoxins Macrocytic anemia Monitor CBC daily. Follow trends No indication for transfusion of blood products at this time Hyponatremia Replace electrolytes as clinically indicated per ICU electrolyte protocol PT evaluate and treat Access -utilize peripheral IV. Central line if indicated GI and DVT prophylaxis -GI -lansoprazole -DVT -SCD/heparin subcu [facility] Discharge Planning Likely home with home health care in the next 24-48 hours if patient continues to improve Problem Qualifiers (1) Acute respiratory failure: Qualified Codes: J96.00 - Acute respiratory failure, unspecified whether with hypoxia or hypercapnia (2) Anxiety disorder: Qualified Codes: F41.1 - Generalized anxiety disorder Tiffany Milligan MD Feb 14, 2018 12:07
--- NOTE | 2018-02-14 12:09 | HHI.FF ---
Face to Face Verification Diagnosis: (1) Alcohol withdrawal delirium (2) Acute respiratory failure Physical Therapy Order: Evaluate and Treat I have seen patient Brad Delgado Jr [place] on 02/14/18. My clinical findings support the need for the requested home health care services because: Limited ability to care for self I certify that my clinical findings support that this patient is homebound because: Unsteady gait/balance Tiffany Milligan MD Feb 14, 2018 12:09
[2018-02-15 01:00] VITALS: BP_SYST 120; BP_SYST 128; BP_DIAS 70; BP_DIAS 71; PULSE 65; PULSE 80; RESP 16; TEMP 97; TEMP 98.7; O2SAT 95
[2018-02-15] MEDS: ACETAMINOPHEN 325 MG TAB PO PRN ×2 (01:10→14:14)
[2018-02-15] MEDS: DOCUSATE SODIUM 50 MG/SENNA 8.6 MG TAB PO SCH (07:44)
[2018-02-15] MEDS: LANSOPRAZOLE SOLUTAB 30 MG TAB G-TUBE SCH (07:44)
[2018-02-15] MEDS: SODIUM CHLORIDE 0.9% FLUSH 10 ML FLUSH IV FLUSH SCH (07:45)
[2018-02-15] MEDS: HEPARIN SODIUM - SQ 10,000 UNITS/ML VIAL SQ SCH (07:45)
[2018-02-15] MEDS: ARTIFICIAL TEARS OPTH SOLN 15 ML BTL EACH EYE SCH ×3 (07:45→16:41)
[2018-02-15 07:46] VITALS: BP 133/81; PULSE 103; RESP 12; TEMP 96.4; O2SAT 94
[2018-02-15] MEDS: RESP: ALBUTEROL 2.5 MG/IPRATROPIUM 0.5 MG NEB (SCH) INH ×2 (08:18→16:06)
[2018-02-15 08:19] VITALS: O2SAT 91
[2018-02-15] MEDS ORDERED: LORA-474 PO (08:51)
[2018-02-15] MEDS ORDERED: THERTAB15 PO (08:51)
[2018-02-15] MEDS ORDERED: MULTIVITAMIN TAB PO SCH (09:00)
[2018-02-15] MEDS ORDERED: THIAMINE HCL 100 MG TAB PO SCH (09:00)
[2018-02-15] MEDS ORDERED: FOLIC ACID 1 MG TAB PO SCH (09:00)
[2018-02-15] MEDS ORDERED: OXYGENTANK NAS.CANULA (09:03)
--- NOTE | 2018-02-15 10:14 | HHI.DS ---
Discharge Summary Admission Date Feb 09, 2018 at 22:42 Discharge Date: Feb 15, 2018 Admitting Diagnosis ETOH Withdrawl Synderome (1) Acute respiratory failure ICD Code: J96.00 - Acute respiratory failure, unspecified whether with hypoxia or hypercapnia Status: Resolved (2) Macrocytic anemia ICD Code: D53.9 - Nutritional anemia, unspecified Status: Chronic (3) Hyponatremia ICD Code: E87.1 - Hypo-osmolality and hyponatremia Status: Resolved (4) Elevated AST (SGOT) ICD Code: R74.0 - Nonspecific elevation of levels of transaminase and lactic acid dehydrogenase [LDH] Status: Resolved (5) Acute kidney injury ICD Code: N17.9 - Acute kidney failure, unspecified Status: Resolved (6) Chronic prescription benzodiazepine use ICD Code: Z79.899 - Other fci (current) drug therapy Status: Chronic (7) Smoking ICD Code: F17.200 - Nicotine dependence, unspecified, uncomplicated Status: Chronic (8) Anxiety disorder ICD Code: F41.9 - Anxiety disorder, unspecified Status: Chronic (9) CKD (chronic kidney disease) stage 2, GFR 60-89 ml/min ICD Code: N18.2 - Chronic kidney disease, stage 2 (mild) Status: Chronic Procedures 02/09 mechanical intubation and ventilation Brief History - From Admission This is a 57-year-old male. Date of admission 02/09/2018. Past medical history includes alcohol use and anxiety with chronic alprazolam use. Patient last consumed alcohol 2 days ago according to family per records. Patient presented to have assessed at being found wandering confused. Patient was awake and oriented to person according to previous records. Baseline laboratories revealed a sodium 133, macrocytic anemia, elevated AST and creatinine 1.35. TSH within normal limits. Patient became more delirious and received 20 mg chlordiazepoxide and 5 mg lorazepam. Despite this, patient became more tachycardic when I evaluated patient patient was in the 190s patient was quite diaphoretic the respiratory rate in the 50s. Please note initial troponin was 0.02. Alcohol level less than 3. Urine drug screen positive for benzodiazepines only Patient was not intubated myself using 20 mg etomidate and [address] pending Imaging Last Impressions Head CT 02/10/18 0008 Signed Impressions: CONCLUSION: 1. Negative noncontrast head CT Chest CT 02/10/18 0000 Signed Impressions: CONCLUSION: 1. Hyperinflated lungs with no pneumothorax. 2. Abnormal thickening and soft tissue density along the right major fissure m ost characteristic of scarring. 3. Mild coronary artery calcifications. Chest X-Ray 02/09/18 1902 Signed Impressions: CONCLUSION: The lungs are hyperinflated consistent with COPD. No acute infiltrate or effusi on. Chronic right distal clavicular fracture. Abdomen X-Ray 02/09/18 0000 Signed Impressions: CONCLUSION: 1. nasogastric tube in place with the tip projected over the mid stomach. 2. Mildly nonspecific bowel gas pattern. PE at Discharge GENERAL: This is a well-nourished, well-developed patient, in no apparent distress. CARDIOVASCULAR: Regular rate and rhythm RESPIRATORY: Clear to auscultation. Breath sounds equal bilaterally. No wheezes , rales, or rhonchi. MUSCULOSKELETAL: Extremities without clubbing, cyanosis, or edema. Mild bilateral upper extremity tremors NEURO: Alert & Oriented x3 to person, place, time moves all ext x4 Skin: Bilateral shoulder and chest tattoos Pt update on day of discharge Patient states that he is walking the bathroom without any difficulty. Would like to go home. He is not short of breath. No complaints of chest pain. Doing better. Less anxious. Hospital Course These are the medical issues addressed during this hospitalization: Acute toxic metabolic encephalopathy resolved Alcohol withdrawal syndrome CIWA protocol was initiated during the hospitalization Continue scheduled Librium and wean to 10 mg p.o. twice daily and hold for sedation and wean off and use Ativan as needed upon discharge to home Alcohol withdrawal and seizure precautions Currently in vitamin bag including thiamine, multivitamin and folate daily and will change to oral supplements during hospitalization Sinus tachycardia Hypotension - resolved Lactic acidosis-resolved Lactic acidosis has resolved Fluids given for hypotension and initial lactic acidosis Acute respiratory failure with initial intubation mechanical ventilation-now resolved Extubated yesterday tolerating well currently on 3 L oxygen wean as tolerated., Encourage incentive spirometry use, continue to wean off oxygen. Want for test will be done and outpatient oxygen will be arranged with continued weaning off oxygen at home Albuterol/ipratropium aerosols every 4 hours with albuterol aerosols every 2 hours as needed dyspnea Acute kidney injury superimposed on CKD stage 2 - resolved Monitor urine output, IV fluid hydration was given Accurate I's and O's, avoid nephrotoxins Macrocytic anemia Monitor CBC daily. Follow trends No indication for transfusion of blood products at this time Hyponatremia Replace electrolytes as clinically indicated per ICU electrolyte protocol At this time, will arrange for home O2 and home health care. Patient has gained maximum benefit from hospitalization and ready to be discharged home. He should follow-up with outpatient alcohol rehab treatment, Far[facility] Watkins. Follow-up with primary care physician Pt Condition on Discharge: Good Discharge Disposition: Disch w/ Home Health Serv Discharge Time: <= 30 minutes Discharge Instructions DIET: Follow Instructions for: Heart Healthy Diet Activities you can perform: Regular-No Restrictions Follow up Referrals: PCP Follow-up - 1 Week New Medications: Oxygen tank (Oxygen tank) 1 Ea Tank LITER VITO.CANULA CONTINUOUS for HYPOXEMIA PREVENTION, #2 Oxygen Concentrator Portable Gaseous 2 L/min via Nasal Cannula Continuous For 99 months Lorazepam (Ativan) 1 Mg Tab 1 MG PO Q6HR PRN for anxiety, #20 TAB Multivitamin with Folic Acid (Thera Tablet) 400 Mcg Tablet 1 TAB PO DAILY for vitamin, #30 TAB-CAP Discontinued Medications: Alprazolam (Alprazolam) 0.5 Mg Tab 0.5 MG PO TID PRN for ANXIETY, TAB 0 Refills Tiffany Milligan MD Feb 15, 2018 10:14
[2018-02-15 12:00] VITALS: BP 126/73; PULSE 104; RESP 18; TEMP 98.3; O2SAT 93
--- NOTE | 2018-02-15 14:24 | HHI.FF ---
Face to Face Verification Diagnosis: (1) Acute respiratory failure (2) Acute exacerbation of chronic obstructive pulmonary disease (COPD) (3) Alcohol withdrawal syndrome, with delirium Physical Therapy Order: Evaluate and Treat Home Health Nursing Order: Medical education Oxygen administration education Nursing assessment with vital signs I have seen patient Brad ShirleyJr on 02/15/18. My clinical findings support the need for the requested home health care services because: Patient has SOB I certify that my clinical findings support that this patient is homebound because: Unsteady gait/balance Tiffany Milligan MD Feb 15, 2018 14:24
[2018-02-15 16:00] VITALS: BP 119/68; PULSE 101; RESP 18; TEMP 98.3; O2SAT 95
[2018-02-15 16:09] VITALS: O2SAT 93
== END 2018-02-15 18:21 | disposition home health service (06) | DRG 896 ==
LOC: NEPC 18:49 → NEDA 21:05 → OBSVTOIN 22:42 → HIMN 02-10 00:25 → N05A 02-14 22:10
PROVIDERS: ADMIT Hospitalist; ATTEND Hospitalist
PROC: 0BH17EZ Insertion of Endotracheal Airway into Trachea, Via Natural or Artificial Opening (ICD-10-PCS; principal; 2018-02-09)
PROC: 5A1945Z Respiratory Ventilation, 24-96 Consecutive Hours (ICD-10-PCS; 2018-02-09)
DX: F10.231 Alcohol dependence with withdrawal delirium (principal); J96.00 Acute respiratory failure, unspecified whether with hypoxia or hypercapnia; G92 Toxic encephalopathy; N17.9 Acute kidney failure, unspecified; I95.9 Hypotension, unspecified; E87.2 Acidosis; Z78.1 Physical restraint status; E87.1 Hypo-osmolality and hyponatremia; D53.9 Nutritional anemia, unspecified; S42.031A Displaced fracture of lateral end of right clavicle, initial encounter for closed fracture; F41.9 Anxiety disorder, unspecified; F17.200 Nicotine dependence, unspecified, uncomplicated; F13.90 Sedative, hypnotic, or anxiolytic use, unspecified, uncomplicated; R79.89 Other specified abnormal findings of blood chemistry; N18.2 Chronic kidney disease, stage 2 (mild)
CPT/HCPCS: 31500; 36600; 70450; 71045; 71250; 74018; 80053; 80307; 81001; 82140; 82550; 82552; 82805; 82948; 83605; 83735; 84100; 84443; 84484; 85025; 85610; 85730; 87040; 87070; 87186; 87205; 87449; 87641; 87804; 93005; 94002; 94003; 94618; 94640; 94664; 95819; 96365; 96375; J1200; J1644; J2060; J2250; J2370; J3010; J3411; J3486; J7030; J7040; J7060